=== PATIENT | male | born 1950 | race Caucasian/White ===

== ENCOUNTER → 2016-05-24 | Outpatient (CLI) | payer OTHER, MEDICARE ==
[~2016-05-24] MED LIST: ASPI81TA28 PO; ATOR-22 PO; DOCU-94 PO; MULT-506 PO; OMEP40CA PO; OXYC-57 PO
[2016-05-24 13:11] LABS: BASO % 0.5 %; BASO ABS # 0.06 K/uL (0-0.2); COMPLETE YES; EOS % 1.9 %; IG% 0.2 %; LYMPH % 30.9 %; LYMPH ABS # 4.06 K/uL (1.2-3.4); MEAN CELL VOLUME 93.8 fL (80-100); MEAN CORPUSCULAR HEMOGLOBIN 32.6 pg (25-34); MEAN CORPUSCULAR HGB CONC 34.8 g/dl (32-36); MEAN PLATELET VOLUME 10.3 fL (7.4-10.4); MONO % 6.8 %; NEUT % 59.7 %; PLATELET COUNT 265 K/uL (130-400); RED BLOOD COUNT 4.48 M/uL (4.7-6.1); WHITE BLOOD COUNT 13.15 K/uL (4.8-10.8)
[2016-05-24 13:42] LABS: BLOOD UREA NITROGEN 13 mg/dl (7-18); CALCIUM 8.9 mg/dl (8.5-10.1); CARBON DIOXIDE 25 mmol/L (21-32); CHLORIDE 106 mmol/L (98-107); CREATININE 0.96 mg/dl (0.60-1.40); GLUCOSE 78 mg/dl (70-99); POTASSIUM 3.8 mmol/L (3.5-5.1); SODIUM 141 mmol/L (136-145)
[2016-05-24 13:52] LABS: FERRITIN 45.1 ng/ml (8.0-388.0)
--- NOTE | 2016-05-31 08:49 | CODING QUERY MEDICAL NECESSITY ---
SUPPORTING DIAGNOSIS NEEDED A supporting diagnosis is required for the test/procedure performed on this patient in order for us to be reimbursed by the patient's insurance. Please provide a supporting diagnosis for the following test/procedure listed below next to the test name along with your signature. *If there is no additional diagnosis for this patient that would support the following test/procedure please document that below next to the test/procedure. Test(s)/Procedure(s) that require a supporting diagnosis: * VITAMIN B-12 LEVEL DIAGNOSIS: * DOS: 05/24/16 Provider Signature: Date: Thank you Caitlin Davies Health Information Management Once completed, please kindly fax back to [phone] For questions please call [phone]
--- NOTE | 2016-06-02 09:29 | CODING QUERY MEDICAL NECESSITY ---
CQSUPPORTING DIAGNOSIS NEEDED A supporting diagnosis is required for the test/procedure performed on this patient in order for us to be reimbursed by the patient's insurance. Please provide a supporting diagnosis for the following test/procedure listed below next to the test name along with your signature. *If there is no additional diagnosis for this patient that would support the following test/procedure please document that below next to the test/procedure. Test(s)/Procedure(s) that require a supporting diagnosis: DOS 05/24/16 VITAMINS AND METABOLIC FUNCTION-VITAMIN B12 Provider Signature: Date: Thank you Ericka Alvarado Health Information Management Once completed, please kindly fax back to [phone] For questions please call [phone]
== END | disposition home or self-care (01) ==
LOC: C.LAB 11:18
PROVIDERS: ATTEND Surgery
DX: C34.90 Malignant neoplasm of unspecified part of unspecified bronchus or lung (principal); I73.9 Peripheral vascular disease, unspecified; E78.5 Hyperlipidemia, unspecified; D64.9 Anemia, unspecified; F17.200 Nicotine dependence, unspecified, uncomplicated

== ENCOUNTER 2016-06-08 11:47 | Inpatient (IN) | payer OTHER, MEDICARE ==
[2016-05-24 12:27] LABS: PARTIAL THROMBOPLASTIN RATIO 1.2; PROTHROMBIN TIME (PATIENT) 10.3 SECONDS (9.0-12.0)
--- NOTE | 2016-05-24 12:54 | PAT Medication Instructions ---
Service Date May 24, 2016. Current Home Medication List Aspirin (Aspirin Ec), 81 MG PO QPM Atorvastatin (Lipitor), 20 MG PO QPM Multivitamin (Multivitamin), 1 TAB PO QPM Omeprazole (Prilosec), 40 MG PO QPM Medication Instructions For Your Scheduled Surgery - Take the following medications as scheduled the night before surgery: Aspirin (Aspirin Ec), 81 MG PO QPM (can continue per surgeon) Atorvastatin (Lipitor), 20 MG PO QPM Multivitamin (Multivitamin), 1 TAB PO QPM Omeprazole (Prilosec), 40 MG PO QPM If you have any questions please call us at [phone] or [phone] ( [facility]) or [phone]
[2016-06-07 08:39] VITALS: BMI 22.0
[~2016-06-08] VITALS: Ht 167.6 cm; Wt 63.2 kg
[2016-06-08] VITALS (7 sets, daily range): BP systolic 133–150; BP diastolic 73–81; PULSE 53–83; TEMP 36.3–36.8; O2SAT 93–97; Ht 167.6 cm; Wt 63.2 kg
[~2016-06-08 11:47] MED LIST changes: -DOCU-94 PO; -OXYC-57 PO
[2016-06-08] MEDS ORDERED: FENTANYL CITRATE INJ 50 MCG/1 ML 2 ML VIAL ONE (14:28)
[2016-06-08] MEDS ORDERED: ONDANSETRON INJ 2 MG/ML 2 ML VIAL ONE (14:28)
[2016-06-08] MEDS ORDERED: ROCURONIUM BROMIDE 10 MG/ML 5 ML VIAL ONE ×2 (14:28→16:57)
[2016-06-08] MEDS ORDERED: MIDAZOLAM HCL 1 MG/ML 2ML VIAL ONE (14:28)
[2016-06-08] MEDS ORDERED: LIDOCAINE HCL 2% 2 ML VIAL (20MG/ML) ONE (14:28)
[2016-06-08] MEDS ORDERED: GLYCOPYRROLATE INJ 0.2 MG/ML VIAL ONE (14:28)
[2016-06-08] MEDS ORDERED: PROPOFOL IV EMULSION 10 MG/ML 20 ML VIAL IV ONE (14:28)
[2016-06-08] MEDS ORDERED: DEXAMETHASONE SOD INJ 4 MG/ML VIAL ONE (14:28)
[2016-06-08] MEDS ORDERED: NEOSTIGMINE METHYLSULFATE 5 MG/5 ML SYR ONE (14:28)
--- NOTE | 2016-06-08 14:29 | History & Physical Bridge Note ---
H&P Re-Evaluation Bridge Note: I have examined the patient, reviewed the History & Physical and in the interval since the performance of the History & Physical I have noted the following changes of clinical significance: No changes noted
[2016-06-08] MEDS ORDERED: ATROPINE SULFATE 0.1 MG/ML 5ML SYR IV PRN (14:30)
[2016-06-08] MEDS ORDERED: EpHEDrine SULFATE INJ 50 MG/ML AMP IV PRN (14:30)
[2016-06-08] MEDS ORDERED: ONDANSETRON INJ 2 MG/ML 2 ML VIAL IV PRN ×2 (14:30→18:45)
[2016-06-08] MEDS ORDERED: FENTANYL CITRATE INJ 50 MCG/1 ML 2 ML VIAL IV PRN (14:30)
[2016-06-08] MEDS ORDERED: BUPIVACAINE LIPOSOME 1/3% 266 MG/20 ML VIAL INFIL ONE (14:47)
[2016-06-08] MEDS ORDERED: SODIUM CHLORIDE 0.9% PF 50 ML VIAL ONE (14:51)
[2016-06-08] MEDS ORDERED: CEFAZOLIN SOD 1 GM VIAL ONE (15:47)
[2016-06-08] MEDS ORDERED: EpHEDrine SULFATE 50MG/5ML SYR ONE (15:51)
[2016-06-08] MEDS ORDERED: HYDROmorphone INJ 2 MG/ML SYR/VIAL ONE (15:52)
[2016-06-08] MEDS ORDERED: MoRPHine SULFATE 2 MG/ML CARP IV PRN ×2 (18:45)
[2016-06-08] MEDS ORDERED: OXYCODONE/ACETAMINOPHEN 5-325 TAB PO PRN (18:45)
--- NOTE | 2016-06-08 19:18 | DIAGNOSTIC IMAGING REPORT ---
CHEST ONE VIEW PORTABLE CLINICAL HISTORY: s/p LLL postoperative evaluation COMPARISON STUDY: 06/03/2014 FINDINGS: Postoperative changes left lung base. Left-sided chest tube in good position. No postprocedural pneumothorax. Small mild subcutaneous emphysematous change. IMPRESSION: Unremarkable postprocedural chest. No evidence pneumothorax. Electronically signed by: Tyrel Sweeney M.D. 06/08/2016 7:16 PM Dictated Date/Time: 06/08/2016 7:16 PM
--- NOTE | 2016-06-08 19:25 | Anesthesiology Progress Note ---
Anesthesia Post Op Note Date & Time Jun 08, 2016 at 19:25 Vital Signs Pain Intensity: 0 Vital Signs Past 12 Hours Date Time Temp Pulse Resp B/P Pulse Ox O2 Delivery O2 Flow Rate FiO2 06/08/16 19:15 70 16 132/61 98 Nasal Cannula 2 06/08/16 19:05 62 16 142/57 100 Mask 10 06/08/16 18:55 69 16 154/69 96 Mask 10 06/08/16 18:46 36.6 75 16 161/69 98 Mask 10 06/08/16 12:09 36.3 53 18 150/76 97 Room Air Notes Mental Status: alert / awake / arousable, participated in evaluation Pt Amnestic to Procedure: Yes Nausea / Vomiting: adequately controlled Pain: adequately controlled Airway Patency, RR, SpO2: stable & adequate BP & HR: stable & adequate Hydration State: stable & adequate Anesthetic Complications: no major complications apparent
[2016-06-08] MEDS: D5W AND 1/2NSS 1,000 ML IV SCH (20:35)
[2016-06-08] MEDS: ACETAMINOPHEN IV 1,000 MG in EMPTY BAG 0 ML IV SCH (21:47)
[2016-06-08] MEDS: CEFAZOLIN IV 2,000 MG in DEXTROSE 5% 50ML 50 ML IV SCH (21:47)
[2016-06-08] MEDS: DOCUSATE SODIUM 100 MG CAP PO SCH (21:47)
[2016-06-08] MEDS: ATORVASTATIN 20 MG TAB PO SCH (21:47)
[2016-06-08] MEDS: MULTIVITAMIN TAB PO SCH (21:48)
[2016-06-08] MEDS: PANTOprazole SOD 40 MG TAB PO SCH (21:48)
[2016-06-08] MEDS: ASPIRIN 81 MG ECTAB PO SCH (21:48)
[2016-06-08] MEDS: METOCLOPRAMIDE HCL INJ 5 MG/ML 2 ML VIAL IV. SCH (21:48)
[2016-06-08] MEDS: KETOROLAC TROMETHAMINE 15 MG/ML VIAL IV. SCH (21:49)
[2016-06-09] VITALS (9 sets, daily range): BP systolic 114–146; BP diastolic 68–76; PULSE 56–85; TEMP 36.5–37.1; O2SAT 95–100
--- NOTE | 2016-06-09 01:59 | OPERATIVE REPORT ---
DATE OF OPERATION: 06/08/2016 PREOPERATIVE DIAGNOSIS: Lung nodule, left lower lobe. POSTOPERATIVE DIAGNOSIS: Non-small cell lung carcinoma, left lower lobe. PROCEDURES: 1. Thoracoscopic wedge resection, left lower lobe mass. 2. Thoracoscopic left lower lobectomy and mediastinal lymph node dissection. SURGEON: Dexter Harper MD COMPLIANCE REPRESENTATIVE DEALER: MIGUEL Faustin ANESTHESIA: General anesthesia with endotracheal intubation. INDICATION FOR PROCEDURE AND FINDINGS: Mr. Alonso is a 66-year-old male, who had a history of smoking and was found to have a mass of left lower lobe. It had some hypermetabolic uptake. After a long discussion, we elected to proceed with a wedge resection and lobectomy if necessary. On 06/08/2016, the patient underwent an uncomplicated thoracoscopic wedge resection of this mass. We were easily able to find that he did indeed have a non-small cell lung carcinoma. We then performed an uncomplicated thoracoscopic left lower lobectomy. DESCRIPTION OF PROCEDURE: The patient was brought to the operating room and laid in supine position. General anesthesia was induced and endotracheal intubation was performed with a double lumen tube. The patient was placed in the right lateral decubitus position. Left chest was prepped and draped in usual sterile fashion. A 5 mm port was placed one interspace below the tip of the scapula and upon entering CO2 was infused. We could see that the patient had no adhesions. We then placed the 10 mm port at the fourth interspace and a 10 mm port in the seventh interspace anteriorly. We were then able to grasp this mass. We could see it appeared to be umbricating the pleura. This mass was wedged out and sent to the lab for frozen section. While waiting for this, we took down the inferior pulmonary ligament biopsy of the eighth and ninth level lymph nodes. We took down some of this posteriorly and anteriorly and dissected out the inferior pulmonary vein. The frozen section came back as consistent with a non-small cell lung carcinoma. We then divided the vein with an Endo-NUNO stapler and upon retracting upward we came upon the bronchus from inferiorly. We then the fissure. The fissure was incomplete anteriorly and after dissecting this out we were able to fire an Endo-NUNO stapler and get down to the artery. We then dissected out the posterior aspect of the fissure. I then came upon the arteries leading to the left lower lobe. I fired the Endo-NUNO over on 3 separate arteries. We took care to not injure the artery proximal to the lingular artery. I then dissected out several level 11, level 12 lymph nodes as well as level 10 and level 5 lymph nodes. I really did not see much in the level 6 area. We were then able to come across the bronchus without difficulty and fire Endo-NUNO stapler across this. Endobag was used to remove this. It should be noted that we enlarged the fourth interspace. We then filled the chest up with saline and we did not see any air leak. This was suctioned out, 266 mg was reconstituted and 60 mL of normal saline injected from the second to the eleventh rib. We then placed a 24-[place] Ze[place]ander chest tube through the anterior thoracostomy port and directed it towards the apex. We sutured it in place with heavy silk suture. Muscle layers of all 3 incisions were closed with 0 Vicryl and then 3-0 Monocryl was used in a running continuous fashion which was antibiotic impregnated to close the skin. He tolerated it well, was extubated in the room and had no air leak. Blood loss was negligible. I attest to the content of the Intraoperative Record and any orders documented therein. Any exceptio ns are noted below.
[2016-06-09] MEDS: ACETAMINOPHEN IV 1,000 MG in EMPTY BAG 0 ML IV SCH ×3 (05:27→21:14)
[2016-06-09] MEDS: D5W AND 1/2NSS 1,000 ML IV SCH (05:27)
[2016-06-09] MEDS: CEFAZOLIN IV 2,000 MG in DEXTROSE 5% 50ML 50 ML IV SCH (05:27)
[2016-06-09] MEDS: KETOROLAC TROMETHAMINE 15 MG/ML VIAL IV. SCH ×3 (05:28→21:11)
[2016-06-09] MEDS: METOCLOPRAMIDE HCL INJ 5 MG/ML 2 ML VIAL IV. SCH ×2 (05:28→14:15)
[2016-06-09 07:08] LABS: BASO ABS # 0.01 K/uL (0-0.2); COMPLETE YES; HEMATOCRIT 38.2 % (42-52); IG% 0.5 %; LYMPH % 14.2 %; LYMPH ABS # 3.37 K/uL (1.2-3.4); MEAN CELL VOLUME 94.6 fL (80-100); MEAN CORPUSCULAR HEMOGLOBIN 32.9 pg (25-34); MEAN CORPUSCULAR HGB CONC 34.8 g/dl (32-36); MEAN PLATELET VOLUME 10.2 fL (7.4-10.4); NEUT % 79.3 %; PLATELET COUNT 279 K/uL (130-400); RED BLOOD COUNT 4.04 M/uL (4.7-6.1); WHITE BLOOD COUNT 23.67 K/uL (4.8-10.8)
[2016-06-09 07:36] LABS: BUN/CREATININE RATIO 10.8 (10-20); CREATININE 1.1 mg/dl (0.60-1.40); POTASSIUM 4.4 mmol/L (3.5-5.1)
--- NOTE | 2016-06-09 07:50 | DIAGNOSTIC IMAGING REPORT ---
SINGLE VIEW CHEST CLINICAL HISTORY: Status post left lower lobe resection. FINDINGS: An AP, portable, upright chest radiograph is compared to study dated 06/08/2016 and correlated with chest CT dated 03/25/2016. The examination is degraded by portable technique and patient rotation. The cardiomediastinal silhouette is unremarkable. There is atherosclerotic calcification of the thoracic aorta. Emphysema is noted. A left-sided chest tube is unchanged in position. There are postoperative changes and volume loss consistent with left lower lobe pulmonary resection. There is elevation of left hemidiaphragm. Linear atelectasis versus scarring at the right lung base is similar to previous. Trace pleural effusions are suspected. No pneumothorax is seen. The skeletal structures are osteopenic. The bony thorax is grossly intact. Subcutaneous gas is present along the left chest wall. IMPRESSION: 1. Emphysema and changes from left lower lobe pulmonary resection. 2. A left-sided chest tube is unchanged in position. No pneumothorax is identified. 3. There is no airspace consolidation typical for pneumonia. Trace pleural effusions are suspected. Electronically signed by: Lester Tom M.D. 06/09/2016 7:48 AM Dictated Date/Time: 06/09/2016 7:46 AM
--- NOTE | 2016-06-09 09:16 | SURGERY PROGRESS NOTE ---
DATE: 06/09/2016 DATE: 06/09/2016. Mr. Alonso was seen today. He is sitting up eating breakfast and reading the paper in a chair. He is afebrile with stable vital signs. He is on room air with excellent saturations. His chest tube drained very little serous fluid, but he does have a very tiny air leak. He is moving air well except for a few rhonchi. His x-ray looks quite good except for some atelectasis at the right base actually. ASSESSMENT AND PLAN: Postoperative day #1, status post thoracoscopic left lower lobectomy. We are going to discontinue all IVs and Rayo catheter and have him ambulate in the hallway and hopefully we are going to get his chest tube out and discharge him by the morning. His labs all look quite good.
[2016-06-09] MEDS: DOCUSATE SODIUM 100 MG CAP PO SCH ×2 (09:55→21:08)
[2016-06-09] MEDS: ENOXAPARIN 40 MG/0.4 ML SYR SQ SCH (09:56)
[2016-06-09] MEDS: ATORVASTATIN 20 MG TAB PO SCH (21:08)
[2016-06-09] MEDS: ASPIRIN 81 MG ECTAB PO SCH (21:08)
[2016-06-09] MEDS: PANTOprazole SOD 40 MG TAB PO SCH (21:08)
[2016-06-09] MEDS: MULTIVITAMIN TAB PO SCH (21:08)
[2016-06-10 03:32] VITALS: BP 163/67; PULSE 74; TEMP 36.5; O2SAT 96
[2016-06-10] MEDS: KETOROLAC TROMETHAMINE 15 MG/ML VIAL IV. SCH ×2 (05:37→13:40)
[2016-06-10] MEDS: ACETAMINOPHEN IV 1,000 MG in EMPTY BAG 0 ML IV SCH ×2 (05:37→13:40)
[2016-06-10 07:57] VITALS: BP 124/70; PULSE 65; TEMP 36.4; O2SAT 96
[2016-06-10] MEDS: DOCUSATE SODIUM 100 MG CAP PO SCH (09:38)
[2016-06-10] MEDS: ENOXAPARIN 40 MG/0.4 ML SYR SQ SCH (09:40)
[2016-06-10 12:03] VITALS: O2SAT 96
--- NOTE | 2016-06-10 12:24 | SURGERY PROGRESS NOTE ---
DATE: 06/10/2016 DATE: 06/10/2016. Mr. Alonso was seen today 2 days after his thoracoscopic left lower lobectomy. His pathology is still pending. The patient is on room air. He is ambulating. He is tolerating a diet. He looks great. He really does not have an air leak today; however, his drainage is a bit much for me to pull this tube. He drained over 500 mL of serous fluid yesterday. He has only drained 80 mL today and I will pull the tube afternoon if his drainage remains low, or wait until tomorrow if the drainage decreases. He and his understand. PAT
[2016-06-10 12:38] VITALS: BP 138/68; PULSE 76; TEMP 36.7; O2SAT 97
[2016-06-10] MEDS ORDERED: OXYC-57 PO (14:45)
[2016-06-10] MEDS ORDERED: DOCU-94 PO (14:45)
--- NOTE | 2016-06-10 14:48 | Discharge Instructions ---
Discharge Instructions Admission Reason for Admission: R91.1 Left Lung Nodule Discharge Discharge Diagnosis / Problem: Left Lung Nodule Discharge Goals Goal(s): Learn about illness Activity Recommendations Activity Limitations: as noted below Lifting Limitations: none 1. Do not drive if taking percocet. 2. Do not fly or SCUBA dive until cleared to do so by Dr. Harper. 3. Keep dressing on for 3 days, then you may remove it and shower. No tub baths. . Instructions / Follow-Up Instructions / Follow-Up 1. Office appointment with Dr. Harper in 1-2 weeks. Office will call you with date and time of appointment. You will need a chest x-ray prior to appointment. Current Hospital Diet Patient's current hospital diet: Regular Diet Discharge Diet Recommended Diet: Regular Diet Procedures Procedures Performed: Left Video assisted thorocascopy, with left lower wedge resection and left lower lobectomy and mediastinal lymphadenectomy Pending Studies Studies pending at discharge: no Medical Emergencies . Who to Call and When: Medical Emergencies: If at any time you feel your situation is an emergency, please call 911 immediately. . Non-Emergent Contact Non-Emergency issues call your: Surgeon Call Non-Emergent contact if: you have a fever, your pain is not controlled, wound has increased drainage . "Provider Documentation" section prepared by Jeramy Dee. VTE Core Measure Inpt VTE Proph given/why not?: Enoxaparin (Lovenox)SQ
--- NOTE | 2016-06-10 15:13 | DIAGNOSTIC IMAGING REPORT ---
CHEST ONE VIEW PORTABLE HISTORY: Left chest tube removal. COMPARISON: Chest 06/09/2016. FINDINGS: Left-sided chest tube has been removed. No pneumothorax identified. Trace right pleural effusion and right basilar densities persist. There are few linear density at the left lung base, unchanged. This favors subsegmental atelectasis. The heart is normal in size. The upper lungs and remain clear. IMPRESSION: Interval removal of the left-sided chest tube. No definite pneumothorax. Electronically signed by: Lucas Stiles M.D. 06/10/2016 3:12 PM Dictated Date/Time: 06/10/2016 3:10 PM
[2016-06-10 15:23] VITALS: BP 138/68; PULSE 76; TEMP 36.7; O2SAT 97
--- NOTE | 2016-06-10 23:14 | DISCHARGE SUMMARY ---
DISCHARGE DIAGNOSIS: Nonsmall cell lung carcinoma left lower lobe. HOSPITAL COURSE: Desean Alonso is a very nice 66-year-old male who was found to have a hypermetabolic mass in his left lower lobe. On 06/08/2016, took the patient to the operating room and wedged this mass out. It turns out this was a nonsmall cell lung carcinoma. I did an uncomplicated thoracoscopic left lower lobectomy with lymph node dissection. He had a very tiny air leak after surgery. We watched him overnight and he really did not have an air leak the following day, but he drained about 500 mL of fluid. The following day he really did not have an air leak. I watched him over the course of the day on 06/10/2016, and as his drainage did not increase, I went ahead and removed his chest tube. His chest x-ray looked quite good afterward. Discharged him home. We will have the final pathology back when I see him in the office next week. Discharge instructions were given.
== END 2016-06-10 15:40 | disposition home or self-care (01) | DRG 165 ==
LOC: ENRESERVDT → ENRESERVTM → C.ACU 11:47 → C.MSW 18:36
PROVIDERS: ADMIT Surgery; ATTEND Surgery
PROC: 0BTJ4ZZ Resection of Left Lower Lung Lobe, Percutaneous Endoscopic Approach (ICD-10-PCS; principal; 2016-06-08 13:30)
PROC: 07B74ZX Excision of Thorax Lymphatic, Percutaneous Endoscopic Approach, Diagnostic (ICD-10-PCS; principal; 2016-06-08 13:30)
PROC: 0BBJ4ZX Excision of Left Lower Lung Lobe, Percutaneous Endoscopic Approach, Diagnostic (ICD-10-PCS; principal; 2016-06-08 13:30)
DX: C34.32 Malignant neoplasm of lower lobe, left bronchus or lung (principal); J44.9 Chronic obstructive pulmonary disease, unspecified; F17.210 Nicotine dependence, cigarettes, uncomplicated; E78.5 Hyperlipidemia, unspecified; K21.9 Gastro-esophageal reflux disease without esophagitis; I73.9 Peripheral vascular disease, unspecified; Z77.090 Contact with and (suspected) exposure to asbestos; Z77.123 Contact with and (suspected) exposure to radon and other naturally occurring radiation; Z98.62 Peripheral vascular angioplasty status; Z87.01 Personal history of pneumonia (recurrent); Z79.82 Long term (current) use of aspirin; Z82.49 Family history of ischemic heart disease and other diseases of the circulatory system; Z82.0 Family history of epilepsy and other diseases of the nervous system; Z82.3 Family history of stroke; Z83.3 Family history of diabetes mellitus

== ENCOUNTER → 2016-06-20 | Outpatient (CLI) | payer OTHER, MEDICARE ==
[~2016-06-20] MED LIST changes: +DOCU-94 PO; +OXYC-57 PO
--- NOTE | 2016-06-20 09:36 | DIAGNOSTIC IMAGING REPORT ---
CHEST 2 VIEWS ROUTINE CLINICAL HISTORY: R91.1 Solitary pulmonary [id number] RECENT LUNG SURGERY COMPARISON STUDY: 06/10/2016 FINDINGS: The cardiac and mediastinal contours remain stable. There is left-sided subcutaneous emphysema. There is mild left basal pleural thickening. There are linear atelectatic changes at left lung base. There is suggestion of mild left lung volume loss. No pneumothorax is visualized.[ IMPRESSION: 1. No evidence of lobar consolidation 2. Subcutaneous emphysema on the left 3. Minor left-sided pleural thickening/fluid. Left basilar atelectasis. Electronically signed by: Arsenio Groves M.D. 06/20/2016 9:35 AM Dictated Date/Time: 06/20/2016 9:33 AM
== END | disposition home or self-care (01) ==
LOC: C.RAD1850 09:18
PROVIDERS: ATTEND Surgery
DX: R91.1 Solitary pulmonary nodule (principal)

== ENCOUNTER → 2016-06-27 | Outpatient (CLI) | payer OTHER, MEDICARE ==
--- NOTE | 2016-06-27 11:09 | DIAGNOSTIC IMAGING REPORT ---
CHEST 2 VIEWS ROUTINE HISTORY: Solitary pulmonary nodule. Postop. COMPARISON: Chest 06/20/2016. FINDINGS: Left chest wall subcutaneous emphysema has improved. No pneumothorax. Small partially loculated left basilar pleural effusion has also slightly improved. The heart is stable in size. Bibasilar linear densities consistent with subsegmental atelectasis. This is also improved. IMPRESSION: 1. No pneumothorax. 2. Improvement in the bibasilar subsegmental atelectasis and small left pleural effusion. Electronically signed by: Lucas Stiles M.D. 06/27/2016 11:07 AM Dictated Date/Time: 06/27/2016 11:05 AM
== END | disposition home or self-care (01) ==
LOC: C.RAD1850 10:33
PROVIDERS: ATTEND Surgery
DX: R91.1 Solitary pulmonary nodule (principal)

== ENCOUNTER → 2016-07-15 | Outpatient (CLI) | payer OTHER, MEDICARE ==
[2016-07-15 13:47] LABS: URINE APPEARANCE TURBID (CLEAR); URINE BILIRUBIN NEG (NEG); URINE COLOR DK YELLOW; URINE EPITHELIAL CELL AUTO 0-5 /lpf (0-5); URINE NITRITE POS (NEG); URINE SPECIFIC GRAVITY 1.022 (1.000-1.030); UROBILINOGEN NEG (NEG)
[2016-07-15 14:00] LABS: MANUAL MICROSCOPIC REQUIRED? NO; REVIEW REQ? YES
== END | disposition home or self-care (01) ==
LOC: C.LABBC 18:00
PROVIDERS: ATTEND Internal Medicine
DX: N45.1 Epididymitis (principal)

== ENCOUNTER → 2016-10-31 | Outpatient (CLI) | payer OTHER, MEDICARE ==
--- NOTE | 2016-10-31 10:52 | DIAGNOSTIC IMAGING REPORT ---
(CHEST) THORAX WITHOUT HISTORY:66 [id number] Adenocarcinoma of the lung. Six-month follow-up study. COMPARISON: Chest radiograph 06/27/2016, PET CT 03/30/2016, chest CT 03/25/2016, CT abdomen and pelvis 07/13/2011. TECHNIQUE: Multiple axial CT images of the chest were obtained without the use of IV contrast. FINDINGS: Thyroid is homogeneous. No pathologic adenopathy of the chest is identified, however evaluation is limited without the use of IV contrast. Heart is normal in size without pericardial effusion. Coronary arterial calcifications are present. There is moderate atherosclerosis of the aorta. Minimal upper lobe predominant emphysematous changes are present. There is no pneumothorax or pleural effusion. Patient is status post left lower lobectomy. Postsurgical pleural-parenchymal scarring is noted at the level of the left lung base. There is compensatory hyperinflation of the left upper lobe. The right lung is clear. Central airways are patent. There is unchanged low attenuating lesion of the right adrenal gland, 7 x 8 mm which is stable dating back to CT study dated 07/13/2011 compatible with adrenal adenoma. Remaining imaged upper abdominal structures are within normal limits. The soft tissues are unremarkable. No suspicious lytic or blastic bony lesions are seen. Multilevel Schmorl's nodes involve the spine. IMPRESSION: 1. Status post left lower lobectomy. No evidence of metastatic disease or adenopathy of the chest. 2. 7 x 8 mm adenoma of the right adrenal gland, unchanged from 07/13/2011. The above report was generated using voice recognition software. It may contain grammatical, syntax or spelling errors. Electronically signed by: Modesto Peterson 10/31/2016 10:51 AM Dictated Date/Time: 10/31/2016 10:43 AM
== END | disposition home or self-care (01) ==
LOC: C.CTS 09:31
PROVIDERS: ATTEND Surgery
DX: C34.90 Malignant neoplasm of unspecified part of unspecified bronchus or lung (principal)

== ENCOUNTER → 2017-05-05 | Outpatient (CLI) | payer OTHER, MEDICARE ==
[~2017-05-05] MED LIST changes: -OXYC-57 PO
--- NOTE | 2017-05-05 09:07 | DIAGNOSTIC IMAGING REPORT ---
CT OF THE CHEST WITHOUT IV CONTRAST CLINICAL HISTORY: Lung adenocarcinoma status post left lower lobectomy. COMPARISON STUDY: Chest CT October 31, 2016. CT DOSE: 236.25 mGy.cm TECHNIQUE: Axial images of the chest were obtained without IV contrast. Images were reviewed in the axial, sagittal, and coronal planes. IV contrast was not administered for this examination. A dose lowering technique was utilized adhering to the principles of ALARA. FINDINGS: No enlarged axillary, mediastinal or hilar lymph nodes are present. The size of the heart is normal. There is no pericardial effusion. Central airways are patent. The patient is status post left lower lobectomy. There is no pneumothorax or pleural effusion. Mild emphysema is noted. There is no consolidation to suggest pneumonia. The postoperative appearance is unchanged since exam of October 31, 2016. Central airways are patent. No suspicious osseous lesions within the bony thorax are noted. Multiple hypodense hepatic lesions are unchanged from earlier exams and reflect hepatic cysts. IMPRESSION: No evidence for recurrent malignancy status post left lower lobectomy. Electronically signed by: Sherif Scott M.D. 05/05/2017 9:06 AM Dictated Date/Time: 05/05/2017 8:52 AM
== END | disposition home or self-care (01) ==
LOC: C.CTS 08:39
PROVIDERS: ATTEND Surgery
DX: Z85.118 Personal history of other malignant neoplasm of bronchus and lung (principal)

== ENCOUNTER → 2017-07-20 | Day surgery (SDC) | payer OTHER, MEDICARE ==
[2017-07-06 08:47] VITALS: Ht 167.6 cm; Wt 63.6 kg
[~2017-07-20] VITALS: Ht 167.6 cm; Wt 63.6 kg
[~2017-07-20] MED LIST changes: -DOCU-94 PO; +LIDOCAINE HCL 2% 2 ML VIAL (20MG/ML) ONE; -OMEP40CA PO; +OMEP40CA41 PO; +PROPOFOL IV EMULSION 10 MG/ML 20 ML VIAL IV ONE; +SODIUM CHLORIDE 0.9% 500ML 500 ML IV ONE
[2017-07-20 14:11] VITALS: TEMP 36.4
--- NOTE | 2017-07-20 14:36 | Endo History and Physical ---
History & Physical Date of Service: Jul 20, 2017. 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 Past Surgical History Hx Cardiac Surgery: No Hx Internal Defibrillator: No Hx Pacemaker: No Hx Abdominal Surgery: No Hx of Implantable Prosthesis: No Hx Post-Op Nausea and Vomiting: No Hx Cancer Surgery: Yes (LEFT LOWER LUNG LOBECTOMY) Hx Thoracic Surgery: No Hx Orthopedic: No Hx Urinary Tract Surgery: No Family History None Social History Smoking Status: Current Every Day Smoker Hx Substance Use: No Hx Alcohol Use: Yes (VERY SELDOM) Allergies Coded Allergies: No Known Allergies (Unverified , 07/20/17) Current Medications Reported Home Medications Medications Dose Route/Sig Max Daily Dose Days Date Category Prilosec (Omeprazole) 40 Mg Cap 40 Mg PO QPM 07/06/17 Reported Lipitor (Atorvastatin Calcium) 20 Mg Tab 20 Mg PO QPM 07/31/13 Reported Aspirin Ec (Aspirin) 81 Mg Tab 81 Mg PO QPM 01/31/13 Reported Multivitamin (Multivitamins) Tab 1 Tab PO QPM 07/13/11 Reported Vital Signs Weight (Kilograms): 63.64 Height (Feet): 5 Height (Inches): 6 Date Time Temp Pulse Resp B/P (MAP) Pulse Ox O2 Delivery O2 Flow Rate FiO2 07/20/17 14:11 36.4 58 18 162/86 (111) 98 Room Air Physical Exam General Appearance: WD/WN, no apparent distress Respiratory/Chest: Auscultation: breath sounds normal Cardiovascular: Heart Auscultation: RRR Abdomen: Bowel Sounds: normal Inspection & Palpation: soft, non-distended, no tenderness, guarding & rebound Assessment and Plan Assessment: 67 yo CM who presents for 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 Plan: Proceed with EGD.
--- NOTE | 2017-07-20 14:51 | Discharge Instructions ---
Endoscopy Patient Instructions Date / Procedure(s) Performed Jul 20, 2017. EGD Allergy Information Coded Allergies: No Known Allergies (Unverified , 07/20/17) Discharge Date / Findings Jul 20, 2017. Stafford's Esophagus Hiatal hernia Medication Instructions Stopped Medication(s): ASPIRIN 81MG 07/19/17 OK to resume all medications today as prescribed Reported Home Medications Medications Dose Route/Sig Max Daily Dose Days Date Category Prilosec (Omeprazole) 40 Mg Cap 40 Mg PO QPM 07/06/17 Reported Lipitor (Atorvastatin Calcium) 20 Mg Tab 20 Mg PO QPM 07/31/13 Reported Aspirin Ec (Aspirin) 81 Mg Tab 81 Mg PO QPM 01/31/13 Reported Multivitamin (Multivitamins) Tab 1 Tab PO QPM 07/13/11 Reported Provider Instructions Activity Restrictions - No exercising or heavy lifting for 24 hours. - Do not drink alcohol the day of the procedure. - Do not drive a car or operate machinery until the day after the procedure. - Do not make any important decisions or sign important papers in 24 hours after the procedure. Following Day: - Return to full activity which may include returning to work/school. Diet Start your diet with liquids and light foods (jello, soup, juice, toast). Then eat your usual diet if not nauseated. Treatment For Common After Affects For mild abdominal pain, bloating, or excessive gas: - Rest - Eat lightly - Lie on right side Follow-Up Information Follow-up with DR Lolis YADAV as scheduled Anesthesia Information What You Should Know You have had a procedure that required some medicine to reduce anxiety and discomfort. This treatment is called moderate sedation. After receiving the treatment, you may be sleepy, but you will be able to breathe on your own. The effects of the treatment may last for several hours. Follow these instructions along with Activity/Diet recommendations noted above: * Do NOT do anything where dizziness or clumsiness would be dangerous. * Rest quietly at home today, then you can be up and about tomorrow. * Have a responsible person stay with you the rest of today. * You may have had an I.V. today. If so, you may take the dressing off later today. Recommendations Call your doctor if: * Trouble breathing * Continuous vomiting for more than 24 hours * Temperature above 101 degrees * Severe abdominal pain or bloating * Pain not relieved by pain medicine ordered * There is increased drainage or redness from any incision * A large amount of rectal bleeding greater than 2-3 tablespoons. (If you had a polyp/s removed or have hemorrhoids, a small amount of blood - from the rectum is to be expected.) * You have any unanswered questions or concerns. IN THE EVENT OF A SERIOUS EMERGENCY, GO TO THE NEAREST EMERGENCY ROOM Your discharge instructions were prepared by provider Mark Anthony Pinto. Patient Instructions Signature Page Desean Alonso Patient (or Guardian) Signature/Date: I have read and understand the instructions given to me by my caregivers. Caregiver/RN/Doctor Signature/Date: The above-named patient and/or guardian has received patient instructions on this date. + Original Patient Signature Page (only) stays with chart. Please make copy for patient.
--- NOTE | 2017-07-20 15:19 | GI REPORT ---
Procedure Date: 07/20/2017 2:10 PM Procedure: Upper GI endoscopy Indications: Follow-up of Stafford's esophagus Medicines: Monitored Anesthesia Care Complications: No immediate complications. Estimated Blood Loss: Estimated blood loss: none. Procedure: Pre-Anesthesia Assessment: - Prior to the procedure, a History and Physical was performed, and patient medications and allergies were reviewed. The patient's tolerance of previous anesthesia was also reviewed. The risks and benefits of the procedure and the sedation options and risks were discussed with the patient. All questions were answered, and informed consent was obtained. Prior Anticoagulants: The patient has taken aspirin, last dose was 1 day prior to procedure. ASA Grade Assessment: III - A patient with severe systemic disease. After reviewing the risks and benefits, the patient was deemed in satisfactory condition to undergo the procedure. After obtaining informed consent, the endoscope was passed under direct vision. Throughout the procedure, the patient's blood pressure, pulse, and oxygen saturations were monitored continuously. The scope was introduced through the mouth, and advanced to the second part of duodenum. The upper GI endoscopy was accomplished without difficulty. The patient tolerated the procedure well. 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 The maximum longitudinal extent of these mucosal changes was 1 cm in length. Biopsies were taken with a cold forceps for histology. A small hiatal hernia was present. The examined duodenum was normal. 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 Biopsied. - Small hiatal hernia. - Normal examined duodenum. Recommendation: - Resume previous diet. - Continue present medications. - Await pathology results. - Return to primary care physician as previously scheduled. Mark Anthony Pinto, DO 07/20/2017 3:18:57 PM This report has been signed electronically. Note Initiated On: 07/20/2017 2:10 PM I attest to the content of the Intraoperative Record and orders documented therein, exceptions below
[2017-07-20 15:41] VITALS: BP 153/79; PULSE 50; O2SAT 100
--- NOTE | 2017-07-20 15:50 | Anesthesiology Progress Note ---
Anesthesia Post Op Note Date & Time Jul 20, 2017 at 15:49 Vital Signs Pain Intensity: 0 Vital Signs Past 12 Hours Date Time Temp Pulse Resp B/P (MAP) Pulse Ox O2 Delivery O2 Flow Rate FiO2 07/20/17 15:41 50 18 153/79 (103) 100 Room Air 07/20/17 15:26 60 18 137/79 (98) 100 Room Air 07/20/17 15:12 54 18 112/59 (76) 99 Room Air 07/20/17 14:11 36.4 58 18 162/86 (111) 98 Room Air Notes Mental Status: alert / awake / arousable, participated in evaluation Pt Amnestic to Procedure: Yes Nausea / Vomiting: adequately controlled Pain: adequately controlled Airway Patency, RR, SpO2: stable & adequate BP & HR: stable & adequate Hydration State: stable & adequate Anesthetic Complications: no major complications apparent
== END | disposition home or self-care (01) ==
LOC: C.GI 13:55
PROVIDERS: ATTEND Internal Medicine
DX: K22.70 Barrett's esophagus without dysplasia (principal); K44.9 Diaphragmatic hernia without obstruction or gangrene; Z90.2 Acquired absence of lung [part of]; J44.9 Chronic obstructive pulmonary disease, unspecified; I73.9 Peripheral vascular disease, unspecified; E78.5 Hyperlipidemia, unspecified; F17.200 Nicotine dependence, unspecified, uncomplicated; K21.9 Gastro-esophageal reflux disease without esophagitis; Z85.118 Personal history of other malignant neoplasm of bronchus and lung; Z79.82 Long term (current) use of aspirin

== ENCOUNTER → 2017-08-24 | Outpatient (CLI) | payer OTHER, MEDICARE ==
[~2017-08-24] MED LIST changes: -LIDOCAINE HCL 2% 2 ML VIAL (20MG/ML) ONE; -PROPOFOL IV EMULSION 10 MG/ML 20 ML VIAL IV ONE; -SODIUM CHLORIDE 0.9% 500ML 500 ML IV ONE
--- NOTE | 2017-08-24 10:17 | DIAGNOSTIC IMAGING REPORT ---
ABDOMEN FOR HERNIA HISTORY: 67 years-old Male K40.90 Right inguinal [id number] acute right inguinal pain with history of prior right inguinal hernia repair. COMPARISON: PET CT 03/30/2016 TECHNIQUE: Multiple real-time sonographic images of the right inguinal tissues were obtained assessing grayscale appearance FINDINGS/IMPRESSION: Small reducible fat filled right inguinal hernia is noted. No bowel is seen associated with the hernia. The above report was generated using voice recognition software. It may contain grammatical, syntax or spelling errors. Electronically signed by: Modesto Peterson M.D. 08/24/2017 10:16 AM Dictated Date/Time: 08/24/2017 10:12 AM
[2017-08-24 13:19] LABS: BASO % 0.4 %; BASO ABS # 0.04 K/uL (0-0.2); EOS % 2.2 %; EOS ABS # 0.25 K/uL (0-0.5); HEMATOCRIT 39.5 % (42-52); HEMOGLOBIN 13.8 g/dL (14.0-18.0); IG# 0.03 K/uL (0.00-0.02); LYMPH % 36.3 %; LYMPH ABS # 4.04 K/uL (1.2-3.4); MEAN CORPUSCULAR HEMOGLOBIN 32.9 pg (25-34); MEAN CORPUSCULAR HGB CONC 34.9 g/dl (32-36); MEAN PLATELET VOLUME 10.4 fL (7.4-10.4); MONO % 6.3 %; NEUT % 54.5 %; NEUT ABS # 6.08 K/uL (1.4-6.5); PLATELET COUNT 254 K/uL (130-400); RED CELL DISTRIBUTION WIDTH CV 13.3 % (11.5-14.5); RED CELL DISTRIBUTION WIDTH SD 45.7 fL (36.4-46.3); WHITE BLOOD COUNT 11.14 K/uL (4.8-10.8)
[2017-08-24 14:03] LABS: ALBUMIN 3.8 gm/dl (3.4-5.0); ALT/SGPT 21 U/L (12-78); AST/SGOT 17 U/L (15-37); BLOOD UREA NITROGEN 14 mg/dl (7-18); CALCIUM 8.8 mg/dl (8.5-10.1); CARBON DIOXIDE 27 mmol/L (21-32); CREATININE 1.09 mg/dl (0.60-1.40); GLUCOSE 90 mg/dl (70-99); POTASSIUM 4.5 mmol/L (3.5-5.1); SODIUM 141 mmol/L (136-145)
[2017-08-24 14:08] LABS: ALKALINE PHOSPHATASE 90 U/L (45-117); CHOLESTEROL 141 mg/dl (0-200); LDL CHOLESTEROL CALCULATED 77 mg/dl
== END | disposition home or self-care (01) ==
LOC: C.ULTRBC 09:43
PROVIDERS: ATTEND Internal Medicine Geriatric Medicine
DX: K40.90 Unilateral inguinal hernia, without obstruction or gangrene, not specified as recurrent (principal); E78.5 Hyperlipidemia, unspecified; K22.70 Barrett's esophagus without dysplasia; D64.9 Anemia, unspecified; J44.9 Chronic obstructive pulmonary disease, unspecified; F17.200 Nicotine dependence, unspecified, uncomplicated; C34.90 Malignant neoplasm of unspecified part of unspecified bronchus or lung; I70.0 Atherosclerosis of aorta

== ENCOUNTER → 2017-09-04 | Outpatient (CLI) | payer OTHER, MEDICARE ==
[~2017-09-04] MED LIST changes: +OPTIRAY 320 IV PRN
--- NOTE | 2017-09-04 07:40 | DIAGNOSTIC IMAGING REPORT ---
CHEST 2 VIEWS ROUTINE CLINICAL HISTORY: C34.90 Adenocarcinoma, lungK40.91 Recurrent inguinal hernia , preoperative chest COMPARISON STUDY: 06/27/2016 FINDINGS: The cardiac and mediastinal contours are normal. There is no evidence of focal pulmonary consolidation. There is no evidence of failure. No pleural effusions are visualized.[ Subsegmental atelectatic changes are present the right lung base. Postsurgical changes are present on the left. IMPRESSION: No active disease in the chest. Electronically signed by: Arsenio Groves M.D. 09/04/2017 7:39 AM Dictated Date/Time: 09/04/2017 7:37 AM
--- NOTE | 2017-09-04 08:26 | DIAGNOSTIC IMAGING REPORT ---
CT ABD/PELVIS IV AND ORAL CONT CLINICAL HISTORY: K40.91 Recurrent inguinal hernia of right side without obstruction LOWER QUADRANT PAIN COMPARISON STUDY: 07/13/2011, inguinal ultrasound dated 08/24/2017 TECHNIQUE: Following the IV administration of 93 mL of Optiray-320, CT scan of the abdomen and pelvis was performed from the lung bases to the proximal femurs. Images are reviewed in the axial, sagittal, and coronal planes. IV contrast was administered without complication. A dose lowering technique was utilized adhering to the principles of ALARA. CT DOSE: 300.69 mGy.cm FINDINGS: Lower chest: There is mild dependent interstitial thickening. There is a small hiatal hernia. Liver: There are scattered subcentimeter hepatic hypodensities, similar to the prior 2011 study. These likely represent cysts. Gallbladder: Unremarkable. Spleen: Normal in size and attenuation. Pancreas: Unremarkable. Adrenal glands: Unremarkable. Kidneys: There are multiple bilateral renal hypodensities. The largest lesion is an 18 mm right renal hypodensity. This exceeds water attenuation and is indeterminate. It appears to contain an internal matrix. A dedicated renal CT scan or renal MRI is recommended in follow-up as this may represent a renal neoplasm. Bowel: There are no transition zone to indicate bowel obstruction. The appendix appears normal. There is no evidence of acute diverticulitis. There are postsurgical changes of a prior right inguinal hernia repair. There is an equivocal tiny residual/recurrent inguinal hernia. Peritoneum: There is no intraperitoneal free air or abdominal ascites. Vasculature: There is a right iliac stent present. There is mild ectasia of the infrarenal abdominal aorta. No aneurysm is visualized. Adenopathy: None. Pelvic viscera: There is mild prostamegaly Skeletal structures: No destructive osseous lesions are seen. IMPRESSION: 1. Indeterminate 18 mm right renal hypodense lesion. A dedicated renal CT or MRI study is recommended in follow-up 2. Postsurgical changes of a prior right inguinal hernia repair. Equivocal tiny residual/recurrent inguinal hernia 3. No evidence of bowel obstruction. No evidence of free air. Normal appendix. No evidence of diverticulitis. Electronically signed by: Arsenio Groves M.D. 09/04/2017 8:25 AM Dictated Date/Time: 09/04/2017 8:13 AM
== END | disposition home or self-care (01) ==
LOC: C.CTS 07:09
PROVIDERS: ATTEND Surgery
DX: C34.90 Malignant neoplasm of unspecified part of unspecified bronchus or lung (principal); Z01.818 Encounter for other preprocedural examination; K40.91 Unilateral inguinal hernia, without obstruction or gangrene, recurrent

== ENCOUNTER → 2017-09-12 | Outpatient (CLI) | payer OTHER, MEDICARE ==
[~2017-09-12] MED LIST changes: +AMLO2.5T PO; +FLM4 PO
--- NOTE | 2017-09-12 16:23 | DIAGNOSTIC IMAGING REPORT ---
KIDNEY (ABDOMEN) COMBO CLINICAL HISTORY: 67 years-old Male presenting with RENAL MASS, *RENAL MASS PROTOCOL* CREATININE 1.09 08/24/17. TECHNIQUE: Multidetector CT of the abdomen was performed before and after the administration of intravenous contrast. IV contrast: 93 mL of Optiray 320. A dose lowering technique was used consistent with the principles of ALARA (as low as reasonably achievable). COMPARISON: 09/04/2017. CT DOSE (mGy.cm): The estimated cumulative dose is 701.70 mGycm. FINDINGS: Social Service Worker topogram: Unremarkable. Lung bases: Emphysematous changes may be present though evaluation of lung bases limited due to respiratory motion. Few linear opacities may represent atelectasis or scarring. Normal heart size. No pericardial or pleural effusion. Liver: Normal morphology. Scattered subcentimeter hypodensities in both lobes of the liver, indeterminate though likely hepatic cysts or hamartomas. Patent hepatic vasculature. Biliary: Mild biliary ductal wall thickening suggested (series 5 image 98). No intrahepatic biliary ductal dilatation. Extrahepatic bile duct top normal in size. Normal gallbladder. Pancreas: Mild parenchymal atrophy. Spleen: Normal. Adrenal glands: Normal. Kidneys and ureters: The 1.8 cm right renal lesion in the anterior aspect of the interpolar region demonstrates enhancement (precontrast 19 HU; early postcontrast 65 HU; delayed postcontrast 56 HU). This mass does not extend into the perinephric fat or vasculature. Multiple well-defined hypodensities in both kidneys, which are subcentimeter and likely cysts though many too small to characterize. Minimal nonspecific air in effort fat stranding bilaterally. No nephrolithiasis no hydronephrosis. Delayed postcontrast imaging demonstrates no filling defect within the urinary collecting systems to the level of the mid ureters. No urothelial thickening. Bowel: Trace hiatal hernia may be present. No bowel obstruction. Peritoneal cavity: No free fluid or intraperitoneal gas. Lymph nodes: No enlarged lymph nodes in the abdomen. Vasculature: Atherosclerosis of the normal caliber abdominal aorta. Significant atherosclerosis of the superior mesenteric artery, which remains patent there is partially visualized right common iliac artery stent. IVC patent. Abdominal wall: Normal. Musculoskeletal: Degenerative changes of the spine. No destructive osseous lesion. IMPRESSION: 1. 1.8 cm enhancing right renal lesion is most worrisome for renal cell carcinoma. No evidence of local or vascular invasion. No lymphadenopathy. No evidence of metastatic disease in abdomen. Electronically signed by: Pierce Moreno M.D. 09/12/2017 4:21 PM Dictated Date/Time: 09/12/2017 4:11 PM
== END | disposition home or self-care (01) ==
LOC: C.CTS 15:31
PROVIDERS: ATTEND Surgery
DX: N28.89 Other specified disorders of kidney and ureter (principal)

== ENCOUNTER 2021-02-04 11:08 | Inpatient (IN) ==
[2021-02-04] MEDS ORDERED: DEXAMETHASONE SOD INJ 4 MG/ML VIAL IV STA (11:25)
[2021-02-04 11:57] LABS: Hematocrit (blood only) 35.8 % (42-52); Hemoglobin 12.9 g/dL (14.0-18.0); Mean Corpuscular Hemoglobin 32.4 pg (25-34); Mean Corpuscular Volume 89.9 fL (80-100); Mean Platelet Volume 10.1 fL (7.4-10.4); Platelet Count 241 K/uL (130-400); RDW Coefficient of Variation 13.2 % (11.5-14.5); RDW Standard Deviation 43.6 fL (36.4-46.3); Red Blood Count 3.98 M/uL (4.7-6.1); White Blood Count 7.98 K/uL (4.8-10.8)
[2021-02-04 12:10] LABS: Partial Thromboplastin Ratio 1.1; Partial Thromboplastin Time 29.9 Seconds (21.0-31.0); Prothrombin Time 9.9 Seconds (9.0-12.0)
[2021-02-04 12:15] LABS: Albumin Level 2.4 gm/dl (3.4-5.0); BUN Creatinine Ratio 9.9 (10-20); Calcium 7.7 mg/dl (8.5-10.1); Est GFR (African American) 61.3 ml/min; Est GFR (Non-African American) 52.9 ml/min; Potassium 4.2 mmol/L (3.5-5.1)
[2021-02-04 12:18] LABS: Albumin Globulin Ratio 0.6 (0.9-2); Bilirubin,Total 0.7 mg/dl (0.2-1); Globulin 3.7 gm/dl (2.5-4.0); Total Protein 6.1 gm/dl (6.4-8.2)
[2021-02-04 12:29] LABS: Basophils # (auto) 0.02 K/uL (0-0.2); Basophils % (auto) 0.3 %; Immature Granulocytes # (auto) 0.03 K/uL (0.00-0.02); Immature Granulocytes % (auto) 0.4 %; Lymphocytes # (auto) 0.76 K/uL (1.2-3.4); Lymphocytes % (auto) 9.5 %; Monocytes # (auto) 0.28 K/uL (0.11-0.59); Monocytes % (auto) 3.5 %; Neutrophils # (auto) 6.89 K/uL (1.4-6.5); Neutrophils % (auto) 86.3 %
[2021-02-04 12:34] LABS: Influenza A virus by PCR Negative (Negative); Influenza B virus by PCR Negative (Negative)
[2021-02-04 12:36] LABS: Base Excess ABG -1.6 mEq/L (-9-1.8); HCO3 ABG 20 mmol/L (19-24); PCO2 ABG 27 mmHg (35-46); PO2 ABG 59 mmHg (80-95)
[2021-02-04 12:41] LABS: Allen Test Pos (Pos)
--- NOTE | 2021-02-04 12:58 | XRay Report ---
SINGLE VIEW CHEST CLINICAL HISTORY: Sepsis. FINDINGS: An AP, portable, upright chest radiograph is compared to study dated 08/06/2018 and correlat ed with chest CT dated 09/25/2020. The examination is degraded by portable technique and patient rotati on. The heart is mildly enlarged noting atherosclerotic calcification of the thoracic aorta. Emphysem a and chronic interstitial thickening is similar to previous. Multifocal airspace consolidation is se en throughout both lungs, right greater than left. No large pleural effusion or pneumothorax is seen. The skeletal structures are osteopenic. The bony thorax is grossly intact. IMPRESSION: 1. Multifocal airspace consolidation is typical for pneumonia. Clinical correlation will be required and radiographic follow-up to resolution is recommended. 2. Cardiomegaly and emphysema. ACT 112: Negative or not required by law. Electronically signed by: Lester Tom M.D. 02/04/2021 12:57 PM
[2021-02-04] MEDS ORDERED: OPTIRAY 320 125ml IV ONE (13:59)
--- NOTE | 2021-02-04 14:02 | CT Scan Report ---
CT SCAN OF THE BRAIN WITHOUT IV CONTRAST CLINICAL HISTORY: Change in mental status. COMPARISON STUDY: No priors. TECHNIQUE: Unenhanced axial CT scan of the brain is performed from the vertex to the skull base. A do se lowering technique was utilized adhering to the principles of ALARA. The examination is modestly d egraded by motion artifact. CT DOSE: 1168.49 mGycm FINDINGS: Brain parenchyma: There are age-related involutional changes noting moderate to advanced subcortical and periventricular microangiopathic change. There is no hemorrhage, mass effect, or evidence of acu te territorial ischemia by CT criteria. Shepherd-white matter differentiation is preserved. No extra-axia l fluid collection is seen. Ventricles, sulci, cisterns: Prominent secondary to involutional change. Intracranial vasculature: There is atherosclerotic calcification of the cavernous carotid and vertebr al arteries. Calvarium: Unremarkable. Sinuses and mastoids: The visualized paranasal sinuses are clear. There is a small right mastoid effu jess. The left mastoid air cells are well pneumatized. Orbits: The bony orbits are grossly intact. IMPRESSION: There is no hemorrhage, mass effect, or evidence of acute territorial ischemia by CT nico gil. ACT 112: Negative or not required by law. Electronically signed by: Lester Tom M.D. 02/04/2021 2:01 PM
--- NOTE | 2021-02-04 14:25 | CT Scan Report ---
CT angio chest PE protocol HISTORY: 70 years-old Male with hypoxia jacqui covid + ro JACQUI. Acute shortness of breath. COVID P ositive. History of lymphoma. TECHNIQUE: Multiple CTA images of the chest were obtained after the intravenous administration of 122 ml Optiray. Coronal and sagittal MIPS were obtained from the axial data set and were submitted for review. All measurements were obtained according to NASCET criteria. A dose lowering technique was u tilized adhering to the principles of ALARA. COMPARISON: Chest radiograph of same day, chest CT 09/25/2020 FINDINGS: Limited study secondary to upper extremity positioning. CTA: The heart is normal in size. Trace pericardial effusion. Mild coronary artery calcifications. Mild at herosclerosis of the thoracic aorta. There is patency of the imaged great vessels. Mild descending th oracic aortic tortuosity. The segmental and subsegmental pulmonary arterial branches are suboptimally evaluated secondary to respiratory motion artifact. No filling defects identified to suggest thrombo embolic disease. CT CHEST: No thyroid nodule. 11 mm pretracheal lymph node on image 144 series 6 previously measured 7 mm. 1.4 c m subcarinal and right hilar adenopathy has also progressed from prior. Trace pleural effusions. No pneumothorax. Mild emphysema. Mild intralobular septal thickening with pa tchy multifocal bilateral groundglass opacities. No suspicious pulmonary nodules or masses are identi fied. The central airways are patent. Small hiatal hernia. No acute process of the imaged upper abdomen. Unremarkable soft tissues. No acut e fracture. Degenerative changes of the shoulders and spine. Unchanged appearance of the left scapula r body. IMPRESSION: 1. Multifocal bilateral groundglass opacities are compatible with viral pneumonia. 2. Mild associated intralobular septal thickening may represent a component of pulmonary edema. 3. Mild mediastinal and hilar adenopathy is new from 09/25/2020. This is likely reactive and less likel y related to the patient's known lymphoma. Attention at follow-up recommended. 4. Trace pleural effusions. 5. Small hiatal hernia. ACT 112: Negative or not required by law. The above report was generated using voice recognition software. It may contain grammatical, syntax o r spelling errors. Electronically signed by: Michael Peterson M.D. 02/04/2021 2:24 PM
--- NOTE | 2021-02-04 15:08 | History & Physical Report ---
Date of Service February 04, 2021 Assessment & Plan (1) COVID: Plan: Unvaccinated. Unclear exact onset of symptoms, patient reports 2 weeks but 7 days reported by his . diagnosed on 01/25. COVID isolation precautions. Dexamethasone 6mg IV daily. Consult pulmonology for remdesivir and baricitinib recommendations (CRP 13.8) Poor prognosis given unvaccinated status, high flow oxygen / BiPAP and poor baseline discussed with patient and his - initially told ER she wanted everything done however intubation would likely be futile and patient able to make his own decisions currently and definitively does not wish to be intubated. This appears to align with his prior reluctance to even come to the hospital in the first place over the last 2 days. (2) Acute respiratory failure with hypoxia: Plan: Aim O2 sats > 90%. Currently on BiPAP but can switch to high flow on COVID phillip. (3) ARDS (adult respiratory distress syndrome): Plan: As above (4) Hyponatremia: Plan: Pulmonary edema on exam suggests some hypervolemia. Lasix 40mg IV Strict I&Os - aim for slightly negative balance. Repeat BMP in AM (5) Pulmonary edema: Plan: As above for hyponatremia (6) Current smoker: Plan: Consider nicotine patch if needed Greater than 80-ozgf-musl smoking history (7) COPD with emphysema: Plan: Continue his routine inhalers (8) BPH w urinary obs/LUTS: Plan: Continue tamsulosin 0.4mg PO HS Recommend bernabe catheter given poor respiratory status he cannot move to urinate currently (9) Diffuse large B-cell lymphoma of intra-abdominal lymph nodes: Plan: Incidentally picked on renal cancer surveillance. Prior rituximab 11/2019. No current treatment. Asymptomatic form this per last oncology note. (10) PAD (peripheral artery disease): Plan: Continue aspirin, atorvastatin (11) Hypertension: Plan: Hold amlodipine in setting of relative hypotension with current infection and Lasix use as above. 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 Currently on surveillance only. Plan: VTE Prophylaxis - Lovenox 40mg SQ BID Diet - NPO given poor respiratory status currently Disposition - admit to PCU Admission and Anticipated Discharge Date Admission Date: February 04, 2021 History of Present Illness Primary Care Provider: Reza Sahu DO Desean Alonso is a 70 year old male who presents to the ER with shortness of breath. His has known COVID-19 pneumonia and the patient assumes he has had it for the last 2 weeks. Main symptom of fatigue and shortness of breath. Difficulty taking full history however due to need for BiPAP and patient in acute respiratory distress. He denies any diarrhea, loss of taste or smell, chest pain, abdominal pain, nasal congestion. He is unvaccinated. He is adamant he does not wish to be intubated. Updated his over the phone. Initially told ER physician she wanted everything possibly done for her but after I told her I discussed intubation and CPR with him and he was quite adamant he did not want this she is in agreement. He has been reluctant to even come to the hospital for the last 2 days. In the ER he is currently maintaining O2 sats > 94% on BiPAP FiO2 60%. SARS COV- 2 PCR positive. He was referred to medicine for admission and ongoing management of COVID-19 pneumonia. Allergies Allergy/AdvReac Type Severity Reaction Status Date / Time No Known Allergies Allergy Verified 02/04/21 14:47 Home Medications Medication Instructions Recorded Confirmed Type multivitamin 1 tab PO DAILY 03/01/19 02/04/21 History albuterol sulfate 90 mcg/actuation 2 puff INH Q6H PRN #18 gm 06/24/20 02/04/21 Rx aerosol inhaler tiotropium 2.5 mcg-olodaterol 2.5 2 puff INHALATION DAILY #3 inhaler 06/24/20 02/04/21 Rx mcg/actuation mist for inhalation (Stiolto Respimat) tamsulosin 0.4 mg capsule 0.4 mg PO HS #90 cap 06/25/20 02/04/21 Rx amlodipine 2.5 mg tablet 2.5 mg PO DAILY #90 tab 07/06/20 02/04/21 Rx atorvastatin 20 mg tablet 20 mg PO DAILY #90 tab 09/23/20 02/04/21 Rx omeprazole 40 mg capsule,delayed 40 mg PO DAILY #90 cap 09/23/20 02/04/21 Rx release aspirin 81 mg tablet,delayed 81 mg PO DAILY 02/04/21 02/04/21 History release (Aspirin Low Dose) Past Med/Surg History Medical History Anemia Anemia Aortic atherosclerosis Stafford esophagus Benign localized prostatic hyperplasia with lower urinary tract symptoms (LUTS) Chromophobe renal cell carcinoma Chronic obstructive pulmonary disease, unspecified Coronary artery calcification Current smoker Elevated PSA Gastroesophageal reflux disease History of adenocarcinoma of lung Hyperglycemia Hyperlipidemia Hypertension PAD (peripheral artery disease) Pulmonary emphysema Recurrent inguinal hernia of right side without obstruction or gangrene Renal mass Surgical History History of arthroscopy 2017 left lower lobectomy and mediastinal lymph node dissection History of kidney surgery History of lobectomy of lung S/P hernia repair S/P tonsillectomy and adenoidectomy S/P tooth extraction Status post insertion of iliac artery stent Family History Mother , age 76 Myocardial infarction Alzheimer disease Stroke syndrome Grandmother Diabetes Brother , age 43 Acute meningococcemia Bacterial meningitis Sister , age 27 MVA (motor vehicle accident) Father , age 62 Cardiac disorder Myocardial infarction Sister No problems noted. Sister No problems noted. Sister No problems noted. Sister No problems noted. Son No problems noted. Son No problems noted. Daughter No problems noted. 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 Beliefs That Will Affect Care: None marital status: Current Living Situation: Spouse current occupational status: employed current occupation: works 3 days How many Children do You have: 3 Feels Safe at Home: Yes Childhood Exposure to Second-Hand Smoke: Yes caffeine: Yes (10-12 cups per day tea one cup per day) during the past year weight has: remained stable Dental Care, Regularly: No Physical Activity Frequency: 1-2 Times per Week Seatbelt Use: always Sunscreen Use: No Review of Systems Review of Systems: All systems reviewed & are unremarkable except as noted in HPI & below Physical Exam Constitutional: + acute distress (respiratory); + not well nourished ENMT: Mouth: + dry oral mucous membranes Neck: trachea midline, no thyromegaly Respiratory: + respiratory distress, + labored breathing, + retractions, + uses accessory muscles and + cough; + not able to speak in complete sentence Auscultation: + diminished lung sounds (throughout) and + crackles (fine throughout); no rales, no rhonchi and no wheezes Cardiovascular: Rate/Rhythm: regular rhythm and + tachycardic Heart Sounds: no murmur Extremities: normal capillary refill; no calf tenderness and no pedal edema Gastrointestinal (Abdomen): normal bowel sounds, soft, nontender, no hepatosplenomegaly Musculoskeletal: no cyanosis or clubbing, extremities motor strength 5/5 Skin: no rashes, warm and dry Neurologic: moves all extremities and awake; not confused Psychiatric: Orientation: alert, oriented to person, oriented to place and oriented to time Affect: euthymic affect Genitourinary: no CVA tenderness Results & Data Results & Data ([facility]) Vital Signs (Past 12 Hours) Vital Signs Temp Pulse Resp BP Pulse Ox 02/04/21 15:00 26 H 96 02/04/21 14:53 83 24 97 02/04/21 14:30 86 32 H 136/75 90 02/04/21 14:07 80 25 H 92 02/04/21 14:01 94 02/04/21 13:30 82 37 H 92 02/04/21 13:00 84 29 H 134/68 96 02/04/21 12:56 24 96 02/04/21 12:30 85 29 H 94 02/04/21 12:00 95 H 23 93 02/04/21 11:56 23 93 02/04/21 11:55 93 H 94 02/04/21 11:50 90 35 H 92 02/04/21 11:30 94 H 32 H 107/88 80 L 02/04/21 11:26 37.4 C 93 H 26 H 137/67 79 L 02/04/21 11:15 93 H 38 H [address] SCAN OF THE BRAIN WITHOUT IV CONTRAST CLINICAL HISTORY: Change in mental status. COMPARISON STUDY: No priors. TECHNIQUE: Unenhanced axial CT scan of the brain is performed from the vertex to the skull base. A dose lowering technique was utilized adhering to the principles of ALARA. The examination is modestly degraded by motion artifact. CT DOSE: 1168.49 mGycm FINDINGS: Brain parenchyma: There are age-related involutional changes noting moderate to advanced subcortical and periventricular microangiopathic change. There is no hemorrhage, mass effect, or evidence of acute territorial ischemia by CT criteria. Shepherd-white matter differentiation is preserved. No extra-axial fluid collection is seen. Ventricles, sulci, cisterns: Prominent secondary to involutional change. Intracranial vasculature: There is atherosclerotic calcification of the cavernous carotid and vertebral arteries. Calvarium: Unremarkable. Sinuses and mastoids: The visualized paranasal sinuses are clear. There is a small right mastoid effusion. The left mastoid air cells are well pneumatized. Orbits: The bony orbits are grossly intact. IMPRESSION: There is no hemorrhage, mass effect, or evidence of acute territorial ischemia by CT criteria. SINGLE VIEW CHEST CLINICAL HISTORY: Sepsis. FINDINGS: An AP, portable, upright chest radiograph is compared to study dated 08/06/2018 and correlated with chest CT dated 09/25/2020. The examination is degraded by portable technique and patient rotation. The heart is mildly enlarged noting atherosclerotic calcification of the thoracic aorta. Emphysema and chronic interstitial thickening is similar to previous. Multifocal airspace consolidation is seen throughout both lungs, right greater than left. No large pleural effusion or pneumothorax is seen. The skeletal structures are osteopenic. The bony thorax is grossly intact. IMPRESSION: 1. Multifocal airspace consolidation is typical for pneumonia. Clinical correlation will be required and radiographic follow-up to resolution is recommended. 2. Cardiomegaly and emphysema. CT angio chest PE protocol HISTORY: 70 years-old Male with hypoxia govind covid + ro GOVIND. Acute shortness of breath. COVID Positive. History of lymphoma. TECHNIQUE: Multiple CTA images of the chest were obtained after the intravenous administration of 122 ml Optiray. Coronal and sagittal MIPS were obtained from the axial data set and were submitted for review. All measurements were obtained according to NASCET criteria. A dose lowering technique was utilized adhering to the principles of ALARA. COMPARISON: Chest radiograph of same day, chest CT 09/25/2020 FINDINGS: Limited study secondary to upper extremity positioning. CTA: The heart is normal in size. Trace pericardial effusion. Mild coronary artery calcifications. Mild atherosclerosis of the thoracic aorta. There is patency of the imaged great vessels. Mild descending thoracic aortic tortuosity. The segmental and subsegmental pulmonary arterial branches are suboptimally evaluated secondary to respiratory motion artifact. No filling defects identified to suggest thromboembolic disease. CT CHEST: No thyroid nodule. 11 mm pretracheal lymph node on image 144 series 6 previously measured 7 mm. 1.4 cm subcarinal and right hilar adenopathy has also progressed from prior. Trace pleural effusions. No pneumothorax. Mild emphysema. Mild intralobular septal thickening with patchy multifocal bilateral groundglass opacities. No suspicious pulmonary nodules or masses are identified. The central airways are patent. Small hiatal hernia. No acute process of the imaged upper abdomen. Unremarkable soft tissues. No acute fracture. Degenerative changes of the shoulders and spine. Unchanged appearance of the left scapular body. IMPRESSION: 1. Multifocal bilateral groundglass opacities are compatible with viral pneumonia. 2. Mild associated intralobular septal thickening may represent a component of pulmonary edema. 3. Mild mediastinal and hilar adenopathy is new from 09/25/2020. This is likely reactive and less likely related to the patient's known lymphoma. Attention at follow-up recommended. 4. Trace pleural effusions. 5. Small hiatal hernia. Medications Administered ER Medications Given: Dexamethasone 6mg IV ECG Indication: SOB/dyspnea Rate (beats per minute): 89 Rhythm: normal sinus Findings: + other (non specific T wave changes in anterior/inferior leads) Comparison ECG Date: from (May 24, 2016) Change: the following changes noted (T wave flattening is new) Code Status & VTE Plan Code Status DNR/DNI as discussed with the patient. Discussed this with his and she agrees with his wishes. VTE Prophylaxis Plan VTE Prophylaxis will be ordered: Yes PG Care Time/CCT Total # of Minutes Spent Total Time Spent with Patient: Total time spent is greater than 50% in coordinat ion of care (as documented) at patient's floor/unit and/or counseling patient: Coding Level of Care Code 11304 Initial Inpt Care Lvl 3 Diagnoses COVID U07.1 ARDS (adult respiratory distress syndrome) J80 Current smoker F17.200 COPD with emphysema J43.9 BPH w urinary obs/LUTS N40.1; N13.8 Diffuse large B-cell lymphoma of intra-abdominal lymph nodes C83.33 PAD (peripheral artery disease) I73.9 Hyponatremia E87.1 Pulmonary edema J81.1 Hypertension I10 Hyperlipidemia E78.5 Stafford esophagus K22.70 Chromophobe renal cell carcinoma C64.9 Acute respiratory failure with hypoxia J96.01
[2021-02-04 15:10] LABS: Appearance Urine Clear (Clear); Bacteria Urine Automated Negative (Negative); Bilirubin Urine Negative (Negative); Blood Urine 1+ (Negative); Cast Urine Automated 0 /lpf (0-5); Color Urine Yellow; Glucose Urine UA Negative (Negative); Ketones Urine Negative (Negative); Leukocyte Esterase Urine Negative (Negative); Nitrite Urine Negative (Negative); Protein Urine 1+ (Negative); RBC Urine Automated 0-4 /hpf (0-4); Specific Gravity Urine 1.018 (1.000-1.030); Urobilinogen Urine Negative (Negative)
--- NOTE | 2021-02-04 16:14 | Pulmonary Consultation ---
Date of Consultation February 04, 2021 Assessment & Plan (1) COVID: (2) ARDS (adult respiratory distress syndrome): (3) COPD with emphysema: Impression: 70-year-old male with history of renal cell cancer, diffuse large B-cell lymphoma, and lung cancer currently in remission now with Covid pn eumonia and ARDS physiology. He clearly states that he does not want to be intubated or undergo CPR and when I saw him he was actually requesting that the BiPAP be removed. When I advised him that this may result in his he nods his head and appears to agree although I am not sure that he currently has capacity and may be suffering from some acute delirium. Recommendations: 1. Covid: Continue dexamethasone 6 mg daily. The patient was screened and appears to meet criteria for baricitinib. He was counseled regarding risks. This is additional immunosuppressive medication. Its been shown to potentially delay progression of Covid pneumonitis. He expressed understanding and is in agreement. Recommedn DVT prophalaxis per ACCP guidelines - either lovenox or heparin. 2. We will check BNP. If it is elevated may consider empiric diuresis. Hold on echocardiogram for now. 3. Procalcitonin negative so do not see a role for antibiotics currently. 4. COPD: Continue Anoro and as needed rescue albuterol/DuoNeb's. Will place on nebulized budesonide. 5. Continue to wean oxygen as tolerated. If the patient wants to come off BiPAP, may be reasonable to pursue a trial of heated high flow oxygen titrated to keep saturations at or above 90%. Again the patient reiterated his desire to not pursue intubation or mechanical ventilation. 6. We will consult palliative care given the patient's critical illness and desire to not pursue aggressive interventions. If he elects to transition to comfort care, palliative medicine input would be beneficial Thanks for the opportunity of caring for this patient. We will continue to follow with you. Feel free to contact us if we can be of additional assistance History of Present Illness History of Present Illness Asked by hospitalist to evaluate this patient with hypoxemic respiratory failure, underlying lung disease, history of lung cancer and diffuse B-cell lymphoma and COPD admitted with Covid pneumonitis and acute hypoxemic respiratory failure. This 70-year-old male has been followed by Dr. Wynn in the outpatient setting. He was last seen about 6 months ago. His PFTs last year showed an FEV1 of 79% predicted with a DLCO of 56% predicted. Patient is status post left lower lobectomy May 2016 and has underlying emphysema. He is also status post partial nephrectomy due to renal cell carcinoma as well as abdominal lymphoma status post Rituxan chemotherapy and radiation therapy in 2019. The patient elected to not be vaccinated for Covid. He states that he has been ill for about 2 weeks. His and he have both tested positive for Covid. He was brought to the emergency room today due to increasing shortness of breath. He was found to be tachypneic. Initially was placed on a nonrebreather. He was transitioned to BiPAP. There was initial concern about him needing intensive care unit however the patient is quite adamant about being DNR/DNI therefore he is being admitted to the telemetry floor. CRP was checked and is high. CT scan was performed and demonstrates diffuse parenchymal groundglass opacities. Allergies Allergy/AdvReac Type Severity Reaction Status Date / Time No Known Allergies Allergy Verified 02/04/21 14:47 Home Medications Medication Instructions Recorded Confirmed Type multivitamin 1 tab PO DAILY 03/01/19 02/04/21 History albuterol sulfate 90 mcg/actuation 2 puff INH Q6H PRN #18 gm 06/24/20 02/04/21 Rx aerosol inhaler tiotropium 2.5 mcg-olodaterol 2.5 2 puff INHALATION DAILY #3 inhaler 06/24/20 02/04/21 Rx mcg/actuation mist for inhalation (Stiolto Respimat) tamsulosin 0.4 mg capsule 0.4 mg PO HS #90 cap 06/25/20 02/04/21 Rx amlodipine 2.5 mg tablet 2.5 mg PO DAILY #90 tab 07/06/20 02/04/21 Rx atorvastatin 20 mg tablet 20 mg PO DAILY #90 tab 09/23/20 02/04/21 Rx omeprazole 40 mg capsule,delayed 40 mg PO DAILY #90 cap 09/23/20 02/04/21 Rx release aspirin 81 mg tablet,delayed 81 mg PO DAILY 02/04/21 02/04/21 History release (Aspirin Low Dose) Patient History Medical History Anemia Anemia Aortic atherosclerosis Stafford esophagus Benign localized prostatic hyperplasia with lower urinary tract symptoms (LUTS) Chromophobe renal cell carcinoma Chronic obstructive pulmonary disease, unspecified Coronary artery calcification Current smoker Elevated PSA Gastroesophageal reflux disease History of adenocarcinoma of lung Hyperglycemia Hyperlipidemia Hypertension PAD (peripheral artery disease) Pulmonary emphysema Recurrent inguinal hernia of right side without obstruction or gangrene Renal mass Surgical History History of arthroscopy History of kidney surgery History of lobectomy of lung S/P hernia repair S/P tonsillectomy and adenoidectomy S/P tooth extraction Status post insertion of iliac artery stent Family History Mother Myocardial infarction Alzheimer disease Stroke syndrome Grandmother Diabetes Brother Acute meningococcemia Bacterial meningitis Sister MVA (motor vehicle accident) Father Cardiac disorder Myocardial infarction Sister No problems noted. Sister No problems noted. Sister No problems noted. Sister No problems noted. Son No problems noted. Son No problems noted. Daughter No problems noted. Denies family history of Ovarian cancer Prostate cancer Breast cancer Lung cancer Colorectal cancer Social History Smoking Status: Unknown if ever smoked Tobacco Type: Cigarettes Age Started Using Tobacco: 5; packs per day: 0.25; Years Smoked: 63; Cigarettes Per Day: 20; Second Hand Exposure: Yes; Hx Alcohol Use: Yes Alcohol type: beer Alcohol Intake Frequency: Monthly or Less Hx Substance Use: No Preferred Language: Zimbabwean Hearing Ability: Normal Beliefs That Will Affect Care: None marital status: Current Living Situation: Spouse current occupational status: employed current occupation: works 3 days How many Children do You have: 3 Feels Safe at Home: Yes Childhood Exposure to Second-Hand Smoke: Yes caffeine: Yes (10-12 cups per day tea one cup per day) during the past year weight has: remained stable Dental Care, Regularly: No Physical Activity Frequency: 1-2 Times per Week Seatbelt Use: always Sunscreen Use: No Review of Systems Review of Systems: Please refer to the admission H&P. I have no additions or deletions Physical Exam Constitutional: Elderly male. He is tachypneic on full face BiPAP. He appears confused and potentially slightly delirious Neck: trachea midline, no thyromegaly Respiratory: + respiratory distress, + labored breathing and + tachypneic Auscultation: + crackles Cardiovascular: RRR, no murmur, no edema Gastrointestinal (Abdomen): normal bowel sounds, soft, nontender, no hepatosplenomegaly Musculoskeletal: Extremities: extremities normal to inspection Skin: no rashes, warm and dry Neurologic: Nonfocal exam Lymphatic: no cervical lymphadenopathy Results & Data Results & Data ([facility]) Vital Signs (Past 12 Hours) Vital Signs Temp Pulse Resp BP Pulse Ox 02/04/21 15:56 25 H 96 02/04/21 15:00 26 H 96 02/04/21 14:53 83 24 97 02/04/21 14:30 86 32 H 136/75 90 02/04/21 14:07 80 25 H 92 02/04/21 14:01 94 02/04/21 13:30 82 37 H 92 02/04/21 13:00 84 29 H 134/68 96 02/04/21 12:56 24 96 02/04/21 12:30 85 29 H 94 02/04/21 12:00 95 H 23 93 02/04/21 11:56 23 93 02/04/21 11:55 93 H 94 02/04/21 11:50 90 35 H 92 02/04/21 11:30 94 H 32 H 107/88 80 L 02/04/21 11:26 37.4 C 93 H 26 H 137/67 79 L 02/04/21 11:15 93 H 38 H 85 L Laboratory Results 02/04/21 11:40 02/04/21 11:40 Blood gas showed a pH 7.50 with a PCO2 27 PO2 of 59 Calcium 7.7 Liver function test with mild elevation of ALT of 148 CRP 13.8 Procalcitonin 0[address] of the chest from today was independently reviewed. The patient is status post left lower lobectomy. There are diffuse groundglass opacities bilaterally with some septal thickening. He has some mild adenopathy. Trace effusions. Head CT from today unremarkable. PG Care Time/CCT Total # of Minutes Spent Total Time Spent with Patient: Total time spent is greater than 50% in coordination of care (as documented) at patient's floor/unit and/or counseling patient: Coding Level of Care Code 67028 Initial Inpt Care Lvl 3 Diagnoses COVID U07.1 ARDS (adult respiratory distress syndrome) J80 COPD with emphysema J43.9
[2021-02-04] MEDS ORDERED: 2 mg Once Daily x14 days PO ONE (16:15)
[2021-02-04] MEDS ORDERED: FUROSEMIDE 40 MG/4 ML VIAL IV STA (16:38)
[2021-02-04] MEDS: BUDESONIDE 0.5 MG/2 ML VIAL (PULMICORT) NEB SCH (19:13)
[2021-02-04] MEDS ORDERED: ACETAMINOPHEN 325 MG TAB PO PRN (19:14)
--- NOTE | 2021-02-04 20:24 | Emergency Department Note ---
History of Present Illness General Chief complaint: Illness Stated complaint: FEVER, COUGH, ILLNESS, WEAKNESS Time Seen by Provider: 02/04/21 11:25 Source: EMS and RN notes reviewed History of Present Illness Provider complaint: Shortness of breath weakness Onset (ago): day(s) 2 70-year-old male presents emergency department with shortness of breath and weakness. Patient has a history of lung cancer and COPD. Patient is not vaccine gets COVID-19. Patient's recently tested positive for COVID-19. EMS reports that the called EMS because he has been more short of breath and weak. Patient is unvaccinated versus COVID-19. Home Medications Medication Instructions Recorded Confirmed Type multivitamin 1 tab PO DAILY 03/01/19 02/04/21 History albuterol sulfate 90 mcg/actuation 2 puff INH Q6H PRN #18 gm 06/24/20 02/04/21 Rx aerosol inhaler tiotropium 2.5 mcg-olodaterol 2.5 2 puff INHALATION DAILY #3 inhaler 06/24/20 02/04/21 Rx mcg/actuation mist for inhalation (Stiolto Respimat) tamsulosin 0.4 mg capsule 0.4 mg PO HS #90 cap 06/25/20 02/04/21 Rx amlodipine 2.5 mg tablet 2.5 mg PO DAILY #90 tab 07/06/20 02/04/21 Rx atorvastatin 20 mg tablet 20 mg PO DAILY #90 tab 09/23/20 02/04/21 Rx omeprazole 40 mg capsule,delayed 40 mg PO DAILY #90 cap 09/23/20 02/04/21 Rx release aspirin 81 mg tablet,delayed 81 mg PO DAILY 02/04/21 02/04/21 History release (Aspirin Low Dose) Allergies Allergy/AdvReac Type Severity Reaction Status Date / Time No Known Allergies Allergy Verified 02/04/21 14:47 Past Med/Surg History Medical History Anemia Anemia Aortic atherosclerosis Stafford esophagus Benign localized prostatic hyperplasia with lower urinary tract symptoms (LUTS) Chromophobe renal cell carcinoma Chronic obstructive pulmonary disease, unspecified Coronary artery calcification Current smoker Elevated PSA Gastroesophageal reflux disease History of adenocarcinoma of lung Hyperglycemia Hyperlipidemia Hypertension PAD (peripheral artery disease) Pulmonary emphysema Recurrent inguinal hernia of right side without obstruction or gangrene Renal mass Surgical History History of arthroscopy 2017 left lower lobectomy and mediastinal lymph node dissection History of kidney surgery History of lobectomy of lung S/P hernia repair S/P tonsillectomy and adenoidectomy S/P tooth extraction Status post insertion of iliac artery stent Family History Mother , age 76 Myocardial infarction Alzheimer disease Stroke syndrome Grandmother Diabetes Brother , age 43 Acute meningococcemia Bacterial meningitis Sister , age 27 MVA (motor vehicle accident) Father , age 62 Cardiac disorder Myocardial infarction Sister No problems noted. Sister No problems noted. Sister No problems noted. Sister No problems noted. Son No problems noted. Son No problems noted. Daughter No problems noted. Denies family history of Ovarian cancer Prostate cancer Breast cancer Lung cancer Colorectal cancer Social History Smoking Status: Current every day smoker Tobacco Type: Cigarettes Age Started Using Tobacco: 5; packs per day: 0.25; Years Smoked: 64; Cigarettes Per Day: 20; Second Hand Exposure: Yes; Hx Alcohol Use: No Hx Substance Use: No Preferred Language: Kinyarwanda Communication Ability: Effective Hearing Ability: Normal Heel Emery Buffer Required: No Beliefs That Will Affect Care: None marital status: Current Living Situation: Spouse current occupational status: employed current occupation: works 3 days How many Children do You have: 3 Feels Safe at Home: Yes Childhood Exposure to Second-Hand Smoke: Yes caffeine: Yes (10-12 cups per day tea one cup per day) during the past year weight has: remained stable Dental Care, Regularly: No Physical Activity Frequency: 1-2 Times per Week Seatbelt Use: always Sunscreen Use: No Review of Systems Unobtainable due to cognitive status Physical Exam Vital Signs Vital Signs - 24 hr 02/04/21 11:15 02/04/21 11:26 02/04/21 11:30 Temperature 37.4 C Temperature Source Oral Pulse Rate 93 H 93 H 94 H Pulse Rate from SpO2 Sensor 94 H Pulse Rhythm Regular Pulse Strength Normal Respiratory Rate 38 H 26 H 32 H Respiratory Effort / Characteristics Grunting Labored Nasal Flaring SOB on Exertion Respiratory Depth Respiratory Pattern Tachypnea Blood Pressure 137/67 107/88 Blood Pressure Mean 90 94 Blood Pressure Position Sitting Pulse Oximetry 85 L 79 L 80 L Oxygen Delivery Method Non-rebreather Oxygen Flow Rate 15 Fraction of Inspired Oxygen Sepsis Recent Fever Within 48 Hours Yes Sepsis New/Unexplained Change in Mental Status Yes Sepsis Action Taken by Nursing Physician Notified 02/04/21 11:50 02/04/21 11:55 02/04/21 11:56 Temperature Temperature Source Pulse Rate 90 Pulse Rate from SpO2 Sensor Pulse Rhythm Regular Pulse Strength Respiratory Rate 35 H 93 H 23 Respiratory Effort / Characteristics Spontaneous Short of Breath Non-Labored Spontaneous Non-Labored Spontaneous Respiratory Depth Normal Respiratory Pattern Tachypnea Blood Pressure Blood Pressure Mean Blood Pressure Position Pulse Oximetry 92 94 93 Oxygen Delivery Method BiPAP BiPAP BiPAP Oxygen Flow Rate Fraction of Inspired Oxygen 60 Sepsis Recent Fever Within 48 Hours Sepsis New/Unexplained Change in Mental Status Sepsis Action Taken by Nursing 02/04/21 12:00 02/04/21 12:30 02/04/21 12:56 Temperature Temperature Source Pulse Rate 95 H 85 Pulse Rate from SpO2 Sensor 94 H 85 Pulse Rhythm Pulse Strength Respiratory Rate 23 29 H 24 Respiratory Effort / Characteristics Non-Labored Spontaneous Respiratory Depth Respiratory Pattern Blood Pressure Blood Pressure Mean Blood Pressure Position Pulse Oximetry 93 94 96 Oxygen Delivery Method BiPAP Oxygen Flow Rate Fraction of Inspired Oxygen Sepsis Recent Fever Within 48 Hours Sepsis New/Unexplained Change in Mental Status Sepsis Action Taken by Nursing 02/04/21 13:00 02/04/21 13:30 02/04/21 14:01 Temperature Temperature Source Pulse Rate 84 82 Pulse Rate from SpO2 Sensor 84 82 87 Pulse Rhythm Pulse Strength Respiratory Rate 29 H 37 H Respiratory Effort / Characteristics Non-Labored Spontaneous Respiratory Depth Respiratory Pattern Blood Pressure 134/68 Blood Pressure Mean 90 Blood Pressure Position Pulse Oximetry 96 92 94 Oxygen Delivery Method BiPAP Oxygen Flow Rate Fraction of Inspired Oxygen Sepsis Recent Fever Within 48 Hours Sepsis New/Unexplained Change in Mental Status Sepsis Action Taken by Nursing 02/04/21 14:07 02/04/21 14:30 02/04/21 14:53 Temperature Temperature Source Pulse Rate 80 86 83 Pulse Rate from SpO2 Sensor 85 Pulse Rhythm Pulse Strength Respiratory Rate 25 H 32 H 24 Respiratory Effort / Characteristics Non-Labored Spontaneous Labored Respiratory Depth Normal Respiratory Pattern Blood Pressure 136/75 Blood Pressure Mean 95 Blood Pressure Position Pulse Oximetry 92 90 97 Oxygen Delivery Method BiPAP BiPAP Oxygen Flow Rate Fraction of Inspired Oxygen 50 60 Sepsis Recent Fever Within 48 Hours Sepsis New/Unexplained Change in Mental Status Sepsis Action Taken by Nursing 02/04/21 15:00 Temperature Temperature Source Pulse Rate 83 Pulse Rate from SpO2 Sensor 81 Pulse Rhythm Pulse Strength Respiratory Rate 37 H Respiratory Effort / Characteristics Non-Labored Spontaneous Respiratory Depth Respiratory Pattern Blood Pressure Blood Pressure Mean Blood Pressure Position Pulse Oximetry 97 Oxygen Delivery Method BiPAP Oxygen Flow Rate Fraction of Inspired Oxygen Sepsis Recent Fever Within 48 Hours Sepsis New/Unexplained Change in Mental Status Sepsis Action Taken by Nursing Physical Exam GENERAL: Patient in respiratory distress. HENT: Exam performed. - Head: Normocephalic and atraumatic. - Right Ear: External ear normal. No mastoid tenderness. - Left Ear: External ear normal. No mastoid tenderness. - Mouth/Throat: The oropharynx is clear and moist. No trismus in the jaw. No dental abscesses or uvula swelling. No oropharyngeal exudate or tonsillar abscesses. EYES: Conjunctivae and EOM are normal. Pupils are equal, round, and reactive to light. Right eye exhibits no discharge. Left eye exhibits no discharge. No scleral icterus. NECK: Normal range of motion. Neck supple. No JVD present. No spinous process tenderness present. No carotid bruit present. No rigidity. No tracheal deviation and normal range of motion present. CV: Normal rate, regular rhythm, normal heart sounds and intact distal pulses. There is no peripheral edema. Palpable radial pulses bue. PULM/CHEST: Tachypneic. Retractions bilaterally. Diminished breath sounds bilaterally. Rhonchi bilaterally. ABD: The abdomen is soft. Bowel sounds are normal. He has no distension. No mass is present. There is no tenderness. There is no rebound, no guarding, no Bae 's sign and no tenderness at McBurney's point. Rovsig negative. MUSC/SKEL: Normal range of motion. There is no peripheral edema, tenderness or deformity. LYMPH: No cervical adenopathy. NEURO: GCS eye subscore is 4. GCS verbal subscore is 4. GCS motor subscore is 6. Patient appears confused. Motor and sensation grossly intact. Course Course 1125: The patient was evaluated in room B2. A complete history and physical exam was performed Cardiac monitoring: An order was placed for continuous cardiac monitoring. The monitor shows a rate of 80 with sinus rhythm Patient was found to be 50 to 60% oxygen saturation on room air. Patient was placed on nonrebreather which did not improve his oxygen saturation much, it yola t up to 70%. Patient was started on high flow nasal cannula which also did not improve his oxygen saturation much. Patient was then switched to BiPAP which did improve his oxygen saturation to the low 90%. We will continue to monitor the patient. Patient remains tachypneic and if his oxygen saturations do not stay in the 88 to 92% range we will plan on intubating the patient. Decadron 6 mg IV push ordered for the patient as it is presumed that he has COVID-19 given his hypoxia, the fact that he is unvaccinated, and that his recently tested positive for COVID-19. 1230: Patient tolerating BiPAP well. Patient is oxygen saturation 92 to 96% on BiPAP. Patient's respiratory rate has improved. Patient does appear more alert. ABG shows a PCO2 of 27. 1330: Patient continues to tolerate BiPAP well. He is alert and oriented now. Spoke with the patient's Thalia [phone] she states that the patient does have a living will but she wants everything done for the patient including intubation if need be. Given this, we will plan on admitting the patient to the medicine service into the ICU. 1400: Patient continues to tolerate BiPAP well. Discussed with Dr. [facility] hospitalist who agrees to admit the patient. He is asking that we consult ICU Dr. Menjivar. Dr. Menjivar agrees to be on consult. 1430: Patient Covid positive. CTA negative for PE does show bilateral groundglass opacities. CT of the head normal. Administered Medications Budesonide (Budesonide 0.5 Mg/2 Ml Vial (Pulmicort)) 0.5 mg NEB [facility] Stop: 03/06/21 18:59 Last Admin: 02/04/21 19:13 Dose: 0.5 mg Documented by: [id number] Discontinued Medications Baricitinib (2 Mg Once Daily X14 Days) 2 mg PO .EXTRA DOSE ONE; Protocol Stop: 02/04/21 16:16 Last Admin: 02/04/21 17:08 Dose: 2 mg Documented by: [id number] Dexamethasone (Dexamethasone Sod Inj 4 Mg/Ml Vial) 6 mg IV NOW STA Stop: 02/04/21 11:26 Last Admin: 02/04/21 11:38 Dose: 6 mg Documented by: [id number] Furosemide (Furosemide 40 Mg/4 Ml Vial) 40 mg IV NOW STA Stop: 02/04/21 16:39 Last Admin: 02/04/21 17:08 Dose: 40 mg Documented by: [id number] Ioversol (Optiray 320 125ml) 122 ml IV ONCE ONE Stop: 02/04/21 14:00 Last Admin: 02/04/21 13:59 Dose: 122 ml Documented by: [id number] Critical Care Time Critical Care Time: Yes Total Critical Care Time: 83 I have personally spent greater than 83 minutes of critical care time in the direct management of this patient. This includes bedside care, interpretation of diagnostic studies, and testing, discussion with consultants, patient, and family members, and other required patient management activities. This 83 minutes is in excess of all separately billable procedures. Medical Decision Making Laboratory Data Result diagrams: 02/04/21 11:40 02/04/21 11:40 Lab Results 02/04/21 02/04/21 02/04/21 Range/Units 11:40 11:40 11:40 WBC 7.98 (4.8-10.8) K/uL RBC 3.98 L (4.7-6.1) M/uL Hgb 12.9 L (14.0-18.0) g/dL Hct 35.8 L (42-52) % MCV 89.9 (80-100) fL MCH 32.4 (25-34) pg MCHC 36.0 (32-36) g/dL RDW Std Deviation 43.6 (36.4-46.3) fL RDW Coeff of [place] 13.2 (11.5-14.5) % Plt Count 241 (130-400) K/uL MPV 10.1 (7.4-10.4) fL Immature Gran % (Auto) 0.4 % Neut % (Auto) 86.3 % Lymph % (Auto) 9.5 % [place] % (Auto) 3.5 % Eos % (Auto) 0.0 % Baso % (Auto) 0.3 % Neut # (Auto) 6.89 H (1.4-6.5) K/uL Lymph # (Auto) 0.76 L (1.2-3.4) K/uL [place] # (Auto) 0.28 (0.11-0.59) K/uL Eos # (Auto) 0.00 (0-0.5) K/uL Baso # (Auto) 0.02 (0-0.2) K/uL Immature Gran # (Auto) 0.03 H (0.00-0.02) K/uL PT 9.9 (9.0-12.0) Seconds INR 1.0 (0.9-1.1) APTT 29.9 (21.0-31.0) Seconds PTT Ratio 1.1 ABG pH (7.35-7.45) ABG pCO2 (35-46) mmHg ABG pO2 (80-95) mmHg ABG HCO3 (19-24) mmol/L ABG O2 Saturation (90-95) % ABG Base Excess (-9-1.8) mEq/L Ori Test (Pos) Barometric Pressure mm/Hg Oxygen Given Sodium 126 L (136-145) mmol/L Potassium 4.2 (3.5-5.1) mmol/L Chloride 95 L (98-107) mmol/L Carbon Dioxide 24 (21-32) mmol/L Anion Gap 7.0 (3-11) BUN 13 (7-18) mg/dl Creatinine 1.34 (0.6-1.4) mg/dl Est Cr Clr Drug Dosing 51.0 ml/min Est GFR ( Amer) 61.3 ml/min Est GFR (Non-Af Amer) 52.9 ml/min BUN/Creatinine Ratio 9.9 L (10-20) Glucose 93 (70-99) mg/dl Lactate (0.4-2.0) mmol/L Calcium 7.7 L (8.5-10.1) mg/dl Magnesium 2.0 (1.8-2.4) mg/dl Total Bilirubin 0.7 (0.2-1) mg/dl AST 148 H (15-37) U/L ALT 69 (12-78) U/L Alkaline Phosphatase 105 (45-117) U/L C-Reactive Protein (0-0.29) mg/dl NT-Pro-B Natriuret Pep (0-900) pg/ml Total Protein 6.1 L (6.4-8.2) gm/dl Albumin 2.4 L (3.4-5.0) gm/dl Globulin 3.7 (2.5-4.0) gm/dl Albumin/Globulin Ratio 0.6 L (0.9-2) Procalcitonin (0-0.5) ng/ml Urine Color Urine Appearance (Clear) Urine pH (4.5-7.5) Ur Specific [place] (1.000-1.030) Urine Protein (Negative) Urine Glucose (UA) (Negative) Urine Ketones (Negative) Urine Blood (Negative) Urine Nitrite (Negative) Urine Bilirubin (Negative) Urine Urobilinogen (Negative) Ur Leukocyte Esterase (Negative) Urine WBC (Auto) (0-5) /hpf Urine RBC (Auto) (0-4) /hpf U Hyaline Cast (Auto) (0-5) /lpf U Epithel Cells (Auto) (0-5) /lpf Urine Bacteria (Auto) (Negative) COVID-19 Eval Order SARS-CoV-2 (PCR) (Negative) Influ A Molecular Assay (Negative) Influ B Molecular Assay (Negative) 02/04/21 02/04/21 02/04/21 Range/Units 11:40 11:40 11:40 WBC (4.8-10.8) K/uL RBC (4.7-6.1) M/uL Hgb (14.0-18.0) g/dL Hct (42-52) % MCV (80-100) fL MCH (25-34) pg MCHC (32-36) g/dL RDW Std Deviation (36.4-46.3) fL RDW Coeff of [place]orge (11.5-14.5) % Plt Count (130-400) K/uL MPV (7.4-10.4) fL Immature Gran % (Auto) % Neut % (Auto) % Lymph % (Auto) % [place] % (Auto) % Eos % (Auto) % Baso % (Auto) % Neut # (Auto) (1.4-6.5) K/uL Lymph # (Auto) (1.2-3.4) K/uL [place] # (Auto) (0.11-0.59) K/uL Eos # (Auto) (0-0.5) K/uL Baso # (Auto) (0-0.2) K/uL Immature Gran # (Auto) (0.00-0.02) K/uL PT (9.0-12.0) Seconds INR (0.9-1.1) APTT (21.0-31.0) Seconds PTT Ratio ABG pH (7.35-7.45) ABG pCO2 (35-46) mmHg ABG pO2 (80-95) mmHg ABG HCO3 (19-24) mmol/L ABG O2 Saturation (90-95) % ABG Base Excess (-9-1.8) mEq/L Ori Test (Pos) Barometric Pressure mm/Hg Oxygen Given Sodium (136-145) mmol/L Potassium (3.5-5.1) mmol/L Chloride (98-107) mmol/L Carbon Dioxide (21-32) mmol/L Anion Gap (3-11) BUN (7-18) mg/dl Creatinine (0.6-1.4) mg/dl Est Cr Clr Drug Dosing ml/min Est GFR ( Amer) ml/min Est GFR (Non-Af Amer) ml/min BUN/Creatinine Ratio (10-20) Glucose (70-99) mg/dl Lactate 1.4 (0.4-2.0) mmol/L Calcium (8.5-10.1) mg/dl Magnesium (1.8-2.4) mg/dl Total Bilirubin (0.2-1) mg/dl AST (15-37) U/L ALT (12-78) U/L Alkaline Phosphatase (45-117) U/L C-Reactive Protein (0-0.29) mg/dl NT-Pro-B Natriuret Pep (0-900) pg/ml Total Protein (6.4-8.2) gm/dl Albumin (3.4-5.0) gm/dl Globulin (2.5-4.0) gm/dl Albumin/Globulin Ratio (0.9-2) Procalcitonin (0-0.5) ng/ml Urine Color Urine Appearance (Clear) Urine pH (4.5-7.5) Ur Specific [place] (1.000-1.030) Urine Protein (Negative) Urine Glucose (UA) (Negative) Urine Ketones (Negative) Urine Blood (Negative) Urine Nitrite (Negative) Urine Bilirubin (Negative) Urine Urobilinogen (Negative) Ur Leukocyte Esterase (Negative) Urine WBC (Auto) (0-5) /hpf Urine RBC (Auto) (0-4) /hpf U Hyaline Cast (Auto) (0-5) /lpf U Epithel Cells (Auto) (0-5) /lpf Urine Bacteria (Auto) (Negative) COVID-19 Eval Order Covid19 at [facility] SARS-CoV-2 (PCR) POSITIVE A* (Negative) Influ A Molecular Assay (Negative) Influ B Molecular Assay (Negative) 02/04/21 02/04/21 02/04/21 Range/Units 11:40 11:40 11:40 WBC (4.8-10.8) K/uL RBC (4.7-6.1) M/uL Hgb (14.0-18.0) g/dL Hct (42-52) % MCV (80-100) fL MCH (25-34) pg MCHC (32-36) g/dL RDW Std Deviation (36.4-46.3) fL RDW Coeff of [place] (11.5-14.5) % Plt Count (130-400) K/uL MPV (7.4-10.4) fL Immature Gran % (Auto) % Neut % (Auto) % Lymph % (Auto) % [place] % (Auto) % Eos % (Auto) % Baso % (Auto) % Neut # (Auto) (1.4-6.5) K/uL Lymph # (Auto) (1.2-3.4) K/uL [place] # (Auto) (0.11-0.59) K/uL Eos # (Auto) (0-0.5) K/uL Baso # (Auto) (0-0.2) K/uL Immature Gran # (Auto) (0.00-0.02) K/uL PT (9.0-12.0) Seconds INR (0.9-1.1) APTT (21.0-31.0) Seconds PTT Ratio ABG pH (7.35-7.45) ABG pCO2 (35-46) mmHg ABG pO2 (80-95) mmHg ABG HCO3 (19-24) mmol/L ABG O2 Saturation (90-95) % ABG Base Excess (-9-1.8) mEq/L Ori Test (Pos) Barometric Pressure mm/Hg Oxygen Given Sodium (136-145) mmol/L Potassium (3.5-5.1) mmol/L Chloride (98-107) mmol/L Carbon Dioxide (21-32) mmol/L Anion Gap (3-11) BUN (7-18) mg/dl Creatinine (0.6-1.4) mg/dl Est Cr Clr Drug Dosing ml/min Est GFR ( Amer) ml/min Est GFR (Non-Af Amer) ml/min BUN/Creatinine Ratio (10-20) Glucose (70-99) mg/dl Lactate (0.4-2.0) mmol/L Calcium (8.5-10.1) mg/dl Magnesium (1.8-2.4) mg/dl Total Bilirubin (0.2-1) mg/dl AST (15-37) U/L ALT (12-78) U/L Alkaline Phosphatase (45-117) U/L C-Reactive Protein 13.80 H (0-0.29) mg/dl NT-Pro-B Natriuret Pep 1307 H (0-900) pg/ml Total Protein (6.4-8.2) gm/dl Albumin (3.4-5.0) gm/dl Globulin (2.5-4.0) gm/dl Albumin/Globulin Ratio (0.9-2) Procalcitonin 0.22 (0-0.5) ng/ml Urine Color Urine Appearance (Clear) Urine pH (4.5-7.5) Ur Specific [place] (1.000-1.030) Urine Protein (Negative) Urine Glucose (UA) (Negative) Urine Ketones (Negative) Urine Blood (Negative) Urine Nitrite (Negative) Urine Bilirubin (Negative) Urine Urobilinogen (Negative) Ur Leukocyte Esterase (Negative) Urine WBC (Auto) (0-5) /hpf Urine RBC (Auto) (0-4) /hpf U Hyaline Cast (Auto) (0-5) /lpf U Epithel Cells (Auto) (0-5) /lpf Urine Bacteria (Auto) (Negative) COVID-19 Eval Order SARS-CoV-2 (PCR) (Negative) Influ A Molecular Assay (Negative) Influ B Molecular Assay (Negative) 02/04/21 02/04/21 02/04/21 Range/Units 11:48 12:11 14:40 WBC (4.8-10.8) K/uL RBC (4.7-6.1) M/uL Hgb (14.0-18.0) g/dL Hct (42-52) % MCV (80-100) fL MCH (25-34) pg MCHC (32-36) g/dL RDW Std Deviation (36.4-46.3) fL RDW Coeff of [place] (11.5-14.5) % Plt Count (130-400) K/uL MPV (7.4-10.4) fL Immature Gran % (Auto) % Neut % (Auto) % Lymph % (Auto) % [place] % (Auto) % Eos % (Auto) % Baso % (Auto) % Neut # (Auto) (1.4-6.5) K/uL Lymph # (Auto) (1.2-3.4) K/uL [place] # (Auto) (0.11-0.59) K/uL Eos # (Auto) (0-0.5) K/uL Baso # (Auto) (0-0.2) K/uL Immature Gran # (Auto) (0.00-0.02) K/uL PT (9.0-12.0) Seconds INR (0.9-1.1) APTT (21.0-31.0) Seconds PTT Ratio ABG pH 7.50 H (7.35-7.45) ABG pCO2 27 L (35-46) mmHg ABG pO2 59 L (80-95) mmHg ABG HCO3 20 (19-24) mmol/L ABG O2 Saturation 91.0 (90-95) % ABG Base Excess -1.6 (-9-1.8) mEq/L Ori Test Pos (Pos) Barometric Pressure 733.0 mm/Hg Oxygen Given BiPap Sodium (136-145) mmol/L Potassium (3.5-5.1) mmol/L Chloride (98-107) mmol/L Carbon Dioxide (21-32) mmol/L Anion Gap (3-11) BUN (7-18) mg/dl Creatinine (0.6-1.4) mg/dl Est Cr Clr Drug Dosing ml/min Est GFR ( Amer) ml/min Est GFR (Non-Af Amer) ml/min BUN/Creatinine Ratio (10-20) Glucose (70-99) mg/dl Lactate (0.4-2.0) mmol/L Calcium (8.5-10.1) mg/dl Magnesium (1.8-2.4) mg/dl Total Bilirubin (0.2-1) mg/dl AST (15-37) U/L ALT (12-78) U/L Alkaline Phosphatase (45-117) U/L C-Reactive Protein (0-0.29) mg/dl NT-Pro-B Natriuret Pep (0-900) pg/ml Total Protein (6.4-8.2) gm/dl Albumin (3.4-5.0) gm/dl Globulin (2.5-4.0) gm/dl Albumin/Globulin Ratio (0.9-2) Procalcitonin (0-0.5) ng/ml Urine Color Yellow Urine Appearance Clear (Clear) Urine pH 6.0 (4.5-7.5) Ur Specific [place] 1.018 (1.000-1.030) Urine Protein 1+ H (Negative) Urine Glucose (UA) Negative (Negative) Urine Ketones Negative (Negative) Urine Blood 1+ H (Negative) Urine Nitrite Negative (Negative) Urine Bilirubin Negative (Negative) Urine Urobilinogen Negative (Negative) Ur Leukocyte Esterase Negative (Negative) Urine WBC (Auto) 1-5 (0-5) /hpf Urine RBC (Auto) 0-4 (0-4) /hpf U Hyaline Cast (Auto) 0 (0-5) /lpf U Epithel Cells (Auto) 5-10 H (0-5) /lpf Urine Bacteria (Auto) Negative (Negative) COVID-19 Eval Order SARS-CoV-2 (PCR) (Negative) Influ A Molecular Assay Negative (Negative) Influ B Molecular Assay Negative (Negative) Imaging Data Radiologist's Impression: Chest CTA 02/04/21 11:25 CT angio chest PE protocol HISTORY: 70 years-old Male with hypoxia govind covid + ro GOVIND. Acute shortness of breath. COVID Positive. History of lymphoma. TECHNIQUE: Multiple CTA images of the chest were obtained after the intravenous administration of 122 ml Optiray. Coronal and sagittal MIPS were obtained from the axial data set and were submitted for review. All measurements were obtained according to NASCET criteria. A dose lowering technique was utilized adhering to the principles of ALARA. COMPARISON: Chest radiograph of same day, chest CT 09/25/2020 FINDINGS: Limited study secondary to upper extremity positioning. CTA: The heart is normal in size. Trace pericardial effusion. Mild coronary artery calcifications. Mild atherosclerosis of the thoracic aorta. There is patency of the imaged great vessels. Mild descending thoracic aortic tortuosity. The segmental and subsegmental pulmonary arterial branches are suboptimally evaluated secondary to respiratory motion artifact. No filling defects identified to suggest thromboembolic disease. CT CHEST: No thyroid nodule. 11 mm pretracheal lymph node on image 144 series 6 previously measured 7 mm. 1.4 cm subcarinal and right hilar adenopathy has also progressed from prior. Trace pleural effusions. No pneumothorax. Mild emphysema. Mild intralobular septal thickening with patchy multifocal bilateral groundglass opacities. No suspicious pulmonary nodules or masses are identified. The central airways are patent. Small hiatal hernia. No acute process of the imaged upper abdomen. Unremarkable soft tissues. No acute fracture. Degenerative changes of the shoulders and spine. Unchanged appearance of the left scapular body. IMPRESSION: 1. Multifocal bilateral groundglass opacities are compatible with viral pneumonia. 2. Mild associated intralobular septal thickening may represent a component of pulmonary edema. 3. Mild mediastinal and hilar adenopathy is new from 09/25/2020. This is likely reactive and less likely related to the patient's known lymphoma. Attention at follow-up recommended. 4. Trace pleural effusions. 5. Small hiatal hernia. ACT 112: Negative or not required by law. The above report was generated using voice recognition software. It may contain grammatical, syntax or spelling errors. Electronically signed by: Michael Peterson M.D. 02/04/2021 2:24 PM Chest X-Ray 02/04/21 11:26 SINGLE VIEW CHEST CLINICAL HISTORY: Sepsis. FINDINGS: An AP, portable, upright chest radiograph is compared to study dated 08/06/2018 and correlated with chest CT dated 09/25/2020. The examination is degraded by portable technique and patient rotation. The heart is mildly enlarged noting atherosclerotic calcification of the thoracic aorta. Emphysema and chronic interstitial thickening is similar to previous. Multifocal airspace consolidation is seen throughout both lungs, right greater than left. No large pleural effusion or pneumothorax is seen. The skeletal structures are osteopenic. The bony thorax is grossly intact. IMPRESSION: 1. Multifocal airspace consolidation is typical for pneumonia. Clinical correlation will be required and radiographic follow-up to resolution is rec ommended. 2. Cardiomegaly and emphysema. ACT 112: Negative or not required by law. Electronically signed by: Lester Tom M.D. 02/04/2021 12:[address] 02/04/21 11:26 CT SCAN OF THE BRAIN WITHOUT IV CONTRAST CLINICAL HISTORY: Change in mental status. COMPARISON STUDY: No priors. TECHNIQUE: Unenhanced axial CT scan of the brain is performed from the vertex to the skull base. A dose lowering technique was utilized adhering to the principles of ALARA. The examination is modestly degraded by motion artifact. CT DOSE: 1168.49 mGycm FINDINGS: Brain parenchyma: There are age-related involutional changes noting moderate to advanced subcortical and periventricular microangiopathic change. There is no hemorrhage, mass effect, or evidence of acute territorial ischemia by CT criteria. Shepherd-white matter differentiation is preserved. No extra-axial fluid collection is seen. Ventricles, sulci, cisterns: Prominent secondary to involutional change. Intracranial vasculature: There is atherosclerotic calcification of the cavernous carotid and vertebral arteries. Calvarium: Unremarkable. Sinuses and mastoids: The visualized paranasal sinuses are clear. There is a small right mastoid effusion. The left mastoid air cells are well pneumatized. Orbits: The bony orbits are grossly intact. IMPRESSION: There is no hemorrhage, mass effect, or evidence of acute territorial ischemia by CT criteria. ACT 112: Negative or not required by law. Electronically signed by: Lester Tom M.D. 02/04/2021 2:01 PM ECG Data Indication: + SOB/dyspnea Rate (beats per minute): 89 Rhythm: + normal sinus ECG Intervals/blocks: + Normal QRS, + Normal NM and + Normal QT-c ECG ST segments: + Normal ST segments MDM Narrative 1125: The patient was evaluated in room B2. A complete history and physical exam was performed Cardiac monitoring: An order was placed for continuous cardiac monitoring. The monitor shows a rate of 80 with sinus rhythm Patient was found to be 50 to 60% oxygen saturation on room air. Patient was placed on nonrebreather which did not improve his oxygen saturation much, it went up to 70%. Patient was started on high flow nasal cannula which also did not improve his oxygen saturation much. Patient was then switched to BiPAP which did improve his oxygen saturation to the low 90%. We will continue to monitor the patient. Patient remains tachypneic and if his oxygen saturations do not stay in the 88 to 92% range we will plan on intubating the patient. Decadron 6 mg IV push ordered for the patient as it is presumed that he has COVID-19 given his hypoxia, the fact that he is unvaccinated, and that his recently tested positive for COVID-19. 1230: Patient tolerating BiPAP well. Patient is oxygen saturation 92 to 96% on BiPAP. Patient's respiratory rate has improved. Patient does appear more alert. ABG shows a PCO2 of 27. 1330: Patient continues to tolerate BiPAP well. He is alert and oriented now. Spoke with the patient's Thalia [phone] she states that the patient does have a living will but she wants everything done for the patient including intubation if need be. Given this, we will plan on admitting the patient to the medicine service into the ICU. 1400: Patient continues to tolerate BiPAP well. Discussed with Dr. White [facility] hospitalist who agrees to admit the patient. He is asking that we consult ICU Dr. Menjivar. Dr. Menjivar agrees to be on consult. 1430: Patient Covid positive. CTA negative for PE does show bilateral groundglass opacities. CT of the head normal. Impression & Plan Hypoxia, Pneumonia due to 2019 novel coronavirus Discharge Plan Visit Data Chief Complaint: Illness Stated Complaint: FEVER, COUGH, ILLNESS, WEAKNESS Discharge Problem: Hypoxia, Pneumonia due to 2019 novel coronavirus Patient Disposition: Admitted As Inpatient Discharge Instructions Interventions: ED Discharge Assessment Last Done: 02/04/21 17:00
[2021-02-04] MEDS: UMECLIDINIUM/VILANTEROL 62.5/25MCG 7 PUFFS/INHALER INH SCH (20:39)
[2021-02-04] MEDS: TAMSULOSIN HCL 0.4 MG CAP PO SCH (20:40)
[2021-02-04] MEDS: ENOXAPARIN INJ 40 MG/0.4 ML SYR SQ SCH (20:41)
--- NOTE | 2021-02-04 22:40 | Electrocardiogram Report ---
Test Reason : Blood Pressure : / mmHG Vent. Rate : 089 BPM Atrial Rate : 089 BPM P-R Int : 116 ms QRS Dur : 080 ms QT Int : 362 ms P-R-T Axes : 023 038 016 degrees QTc Int : 440 ms Poor data quality, interpretation may be adversely affected Normal sinus rhythm Possible Anterior infarct , age undetermined Nonspecific T wave abnormality Abnormal ECG When compared with ECG of 24-MAY-2016 12:58, Vent. rate has increased BY 39 BPM Nonspecific T wave abnormality now evident in Inferior leads Nonspecific T wave abnormality now evident in Anterior leads Confirmed by Tyler Lemus ([id number]) on 02/04/2021 10:40:00 PM Referred By: REFERRED SELF Confirmed By:Tyler Lemus
[2021-02-05 05:06] LABS: Basophils # (auto) 0.03 K/uL (0-0.2); Basophils % (auto) 0.4 %; Hematocrit (blood only) 36.8 % (42-52); Hemoglobin 13.4 g/dL (14.0-18.0); Immature Granulocytes # (auto) 0.04 K/uL (0.00-0.02); Immature Granulocytes % (auto) 0.6 %; Lymphocytes # (auto) 0.92 K/uL (1.2-3.4); Mean Corpuscular Hemoglobin 32.9 pg (25-34); Mean Corpuscular Hgb Conc 36.4 g/dL (32-36); Mean Corpuscular Volume 90.4 fL (80-100); Mean Platelet Volume 10.1 fL (7.4-10.4); Monocytes # (auto) 0.48 K/uL (0.11-0.59); Monocytes % (auto) 6.8 %; Neutrophils # (auto) 5.62 K/uL (1.4-6.5); Neutrophils % (auto) 79.2 %; Platelet Count 246 K/uL (130-400); RDW Coefficient of Variation 13.3 % (11.5-14.5); Red Blood Count 4.07 M/uL (4.7-6.1); White Blood Count 7.09 K/uL (4.8-10.8)
[2021-02-05] MEDS: BUDESONIDE 0.5 MG/2 ML VIAL (PULMICORT) NEB SCH ×2 (05:30→20:07)
[2021-02-05 05:33] LABS: BUN Creatinine Ratio 15.4 (10-20); Calcium 8.3 mg/dl (8.5-10.1); Creatinine Clr Calc Pharmacy 44.7 ml/min; Est GFR (African American) 60.8 ml/min; Est GFR (Non-African American) 52.4 ml/min; Potassium 4.3 mmol/L (3.5-5.1)
[2021-02-05] MEDS ORDERED: NON-FORMULARY MEDICATION (Tiotropium-Olodaterol [Stiolto Respimat] 2.5-2.5 mcg/actuation m INH SCH (09:00)
[2021-02-05] MEDS: ASPIRIN 81 MG ECTAB PO SCH (09:15)
[2021-02-05] MEDS: ATORVASTATIN 20 MG TAB PO SCH (09:16)
[2021-02-05] MEDS: MULTIVITAMIN TAB PO SCH (09:16)
[2021-02-05] MEDS: 2 mg Once Daily x14 days PO SCH (09:16)
[2021-02-05] MEDS: dexAMETHasone 6 MG in SYRINGE 0 ML IV SCH (09:17)
[2021-02-05] MEDS: PANTOprazole 40 MG TAB PO SCH (09:17)
[2021-02-05] MEDS: ENOXAPARIN INJ 40 MG/0.4 ML SYR SQ SCH ×2 (09:18→19:58)
[2021-02-05] MEDS: UMECLIDINIUM/VILANTEROL 62.5/25MCG 7 PUFFS/INHALER INH SCH (09:20)
--- NOTE | 2021-02-05 09:49 | Hospitalist Progress Note ---
Date of Service February 05, 2021 Assessment & Plan (1) COVID: Plan: Unvaccinated. Unclear exact onset of symptoms, patient reports 2 weeks but 7 days reported by his . diagnosed on 01/25 Dexamethasone 6mg IV daily, day 2 Baricitinib 4mg daily, day 2 continue to try to wean oxygen, currently 60L and 90% FiO2 encouraged him to prone, won't consider flutter valve, incentive spirometer (2) Acute respiratory failure with hypoxia: Plan: Aim O2 sats > 90%. Currently on HFNC, 60L 90% has bernabe in place, give Lasix 20mg IV since he is eating/drinking well encouraged to lay on side or prone, not sure he will be compliant he told admitting physician that he does NOT want intubated if breathing gets worse currently he is comfortable (3) ARDS (adult respiratory distress syndrome): Plan: As above (4) Hyponatremia: Plan: due to volume overload, poor solute intake Na is 131 today (5) Pulmonary edema: Plan: As above for hyponatremia Lasix 20mg IV (6) Current smoker: Plan: Consider nicotine patch if needed Greater than [id number] smoking history (7) COPD with emphysema: Plan: Continue his routine inhalers (8) BPH w urinary obs/LUTS: Plan: Continue tamsulosin 0.4mg PO HS bernabe in place (9) Diffuse large B-cell lymphoma of intra-abdominal lymph nodes: Plan: Incidentally picked on renal cancer surveillance. Prior rituximab 11/2019. No current treatment. Asymptomatic form this per last oncology note. (10) PAD (peripheral artery disease): Plan: Continue aspirin, atorvastatin (11) Hypertension: Plan: Hold amlodipine in setting of relative hypotension with current infection and Lasix use as above. 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 Currently on surveillance only. Plan: VTE Prophylaxis - Lovenox 40mg SQ BID Diet - give him a regular diet Disposition - admit to PCU Admission and Anticipated Discharge Date Admission Date: February 04, 2021 Subjective patient is sitting up in bed, finished half of breakfast, said it was "terrible, but coffee was decent" told him he will be in the hospital for at least a week, he said "this sucks" discussed that he is on 60L and 90% oxygen, will try to wean back, not sure we can do it yet today told him to lay on his side or prone, he probably won't do it reviewed the chart, discussed with Dr. Menjivar, appreciate his input Review of Systems Review of Systems: All systems reviewed & are unremarkable except as noted in Subjective Respiratory: + cough and + dyspnea Physical Exam Physical Exam: General: well developed, well nourished, elderly male, ill appearing, no distress Neck: supple, trachea midline, normal thyroid Lungs: clear to auscultation bilaterally, diminished in bases, tachypnea, no accessory muscle use, no distress Heart: regular S1 and S2, no murmur, peripheral pulses normal, capillary refill normal, no edema Abdomen: soft, NT, ND, + BS, no hepatomegaly, normal to percussion Extremities: normal in appearance, no cyanosis, no petechiae, strength is 5/5 bilaterally Neuro: awake, cooperative, moves all extremities, no focal motor deficits, CN II-XII intact, sensation in extremities intact, normal speech Skin: warm, dry, no rash, normal turgor Psych: Awake, alert oriented x 3, euthymic affect Results & Data Results & Data ([facility]) Vital Signs (Past 12 Hours) Vital Signs Temp Pulse Pulse Resp BP Pulse Ox 02/05/21 07:51 36.4 C L 59 L 22 122/65 98 02/05/21 05:31 62 18 92 02/05/21 05:30 62 18 92 02/05/21 05:13 37.0 C 69 16 123/71 93 02/05/21 04:59 64 02/05/21 03:35 72 20 95 02/05/21 00:50 61 20 91 02/04/21 23:00 36.9 C 72 16 133/69 90 Laboratory Results Laboratory Results - last 24 hr 02/04/21 02/04/21 02/04/21 11:40 11:40 11:40 WBC 7.98 RBC 3.98 L Hgb 12.9 L Hct 35.8 L MCV 89.9 MCH 32.4 MCHC 36.0 RDW Std Deviation 43.6 RDW Coeff of [place] 13.2 Plt Count 241 MPV 10.1 Immature Gran % (Auto) 0.4 Neut % (Auto) 86.3 Lymph % (Auto) 9.5 [place] % (Auto) 3.5 Eos % (Auto) 0.0 Baso % (Auto) 0.3 Neut # (Auto) 6.89 H Lymph # (Auto) 0.76 L [place] # (Auto) 0.28 Eos # (Auto) 0.00 Baso # (Auto) 0.02 Immature Gran # (Auto) 0.03 H PT 9.9 INR 1.0 APTT 29.9 PTT Ratio 1.1 ABG pH ABG pCO2 ABG pO2 ABG HCO3 ABG O2 Saturation ABG Base Excess Ori Test Barometric Pressure Oxygen Given Sodium 126 L Potassium 4.2 Chloride 95 L Carbon Dioxide 24 Anion Gap 7.0 BUN 13 Creatinine 1.34 Est Cr Clr Drug Dosing 51.0 Est GFR ( Amer) 61.3 Est GFR (Non-Af Amer) 52.9 BUN/Creatinine Ratio 9.9 L Glucose 93 Lactate Calcium 7.7 L Magnesium 2.0 Total Bilirubin 0.7 AST 148 H ALT 69 Alkaline Phosphatase 105 C-Reactive Protein NT-Pro-B Natriuret Pep Total Protein 6.1 L Albumin 2.4 L Globulin 3.7 Albumin/Globulin Ratio 0.6 L Procalcitonin Urine Color Urine Appearance Urine pH Ur Specific [place] Urine Protein Urine Glucose (UA) Urine Ketones Urine Blood Urine Nitrite Urine Bilirubin Urine Urobilinogen Ur Leukocyte Esterase Urine WBC (Auto) Urine RBC (Auto) U Hyaline Cast (Auto) U Epithel Cells (Auto) Urine Bacteria (Auto) COVID-19 Eval Order SARS-CoV-2 (PCR) Influ A Molecular Assay Influ B Molecular Assay 02/04/21 02/04/21 02/04/21 11:40 11:40 11:40 WBC RBC Hgb Hct MCV MCH MCHC RDW Std Deviation RDW Coeff of [place] Plt Count MPV Immature Gran % (Auto) Neut % (Auto) Lymph % (Auto) [place] % (Auto) Eos % (Auto) Baso % (Auto) Neut # (Auto) Lymph # (Auto) [place] # (Auto) Eos # (Auto) Baso # (Auto) Immature Gran # (Auto) PT INR APTT PTT Ratio ABG pH ABG pCO2 ABG pO2 ABG HCO3 ABG O2 Saturation ABG Base Excess Ori Test Barometric Pressure Oxygen Given Sodium Potassium Chloride Carbon Dioxide Anion Gap BUN Creatinine Est Cr Clr Drug Dosing Est GFR ( Amer) Est GFR (Non-Af Amer) BUN/Creatinine Ratio Glucose Lactate 1.4 Calcium Magnesium Total Bilirubin AST ALT Alkaline Phosphatase C-Reactive Protein NT-Pro-B Natriuret Pep Total Protein Albumin Globulin Albumin/Globulin Ratio Procalcitonin Urine Color Urine Appearance Urine pH Ur Specific [place] Urine Protein Urine Glucose (UA) Urine Ketones Urine Blood Urine Nitrite Urine Bilirubin Urine Urobilinogen Ur Leukocyte Esterase Urine WBC (Auto) Urine RBC (Auto) U Hyaline Cast (Auto) U Epithel Cells (Auto) Urine Bacteria (Auto) COVID-19 Eval Order Covid19 at [facility] SARS-CoV-2 (PCR) POSITIVE A* Influ A Molecular Assay Influ B Molecular Assay 02/04/21 02/04/21 02/04/21 11:40 11:40 11:40 WBC RBC Hgb Hct MCV MCH MCHC RDW Std Deviation RDW Coeff of [place] Plt Count MPV Immature Gran % (Auto) Neut % (Auto) Lymph % (Auto) [place] % (Auto) Eos % (Auto) Baso % (Auto) Neut # (Auto) Lymph # (Auto) [place] # (Auto) Eos # (Auto) Baso # (Auto) Immature Gran # (Auto) PT INR APTT PTT Ratio ABG pH ABG pCO2 ABG pO2 ABG HCO3 ABG O2 Saturation ABG Base Excess Ori Test Barometric Pressure Oxygen Given Sodium Potassium Chloride Carbon Dioxide Anion Gap BUN Creatinine Est Cr Clr Drug Dosing Est GFR ( Amer) Est GFR (Non-Af Amer) BUN/Creatinine Ratio Glucose Lactate Calcium Magnesium Total Bilirubin AST ALT Alkaline Phosphatase C-Reactive Protein 13.80 H NT-Pro-B Natriuret Pep 1307 H Total Protein Albumin Globulin Albumin/Globulin Ratio Procalcitonin 0.22 Urine Color Urine Appearance Urine pH Ur Specific [place] Urine Protein Urine Glucose (UA) Urine Ketones Urine Blood Urine Nitrite Urine Bilirubin Urine Urobilinogen Ur Leukocyte Esterase Urine WBC (Auto) Urine RBC (Auto) U Hyaline Cast (Auto) U Epithel Cells (Auto) Urine Bacteria (Auto) COVID-19 Eval Order SARS-CoV-2 (PCR) Influ A Molecular Assay Influ B Molecular Assay 02/04/21 02/04/21 02/04/21 11:48 12:11 14:40 WBC RBC Hgb Hct MCV MCH MCHC RDW Std Deviation RDW Coeff of [place] Plt Count MPV Immature Gran % (Auto) Neut % (Auto) Lymph % (Auto) [place] % (Auto) Eos % (Auto) Baso % (Auto) Neut # (Auto) Lymph # (Auto) [place] # (Auto) Eos # (Auto) Baso # (Auto) Immature Gran # (Auto) PT INR APTT PTT Ratio ABG pH 7.50 H ABG pCO2 27 L ABG pO2 59 L ABG HCO3 20 ABG O2 Saturation 91.0 ABG Base Excess -1.6 Ori Test Pos Barometric Pressure 733.0 Oxygen Given BiPap Sodium Potassium Chloride Carbon Dioxide Anion Gap BUN Creatinine Est Cr Clr Drug Dosing Est GFR ( Amer) Est GFR (Non-Af Amer) BUN/Creatinine Ratio Glucose Lactate Calcium Magnesium Total Bilirubin AST ALT Alkaline Phosphatase C-Reactive Protein NT-Pro-B Natriuret Pep Total Protein Albumin Globulin Albumin/Globulin Ratio Procalcitonin Urine Color Yellow Urine Appearance Clear Urine pH 6.0 Ur Specific [place] 1.018 Urine Protein 1+ H Urine Glucose (UA) Negative Urine Ketones Negative Urine Blood 1+ H Urine Nitrite Negative Urine Bilirubin Negative Urine Urobilinogen Negative Ur Leukocyte Esterase Negative Urine WBC (Auto) 1-5 Urine RBC (Auto) 0-4 U Hyaline Cast (Auto) 0 U Epithel Cells (Auto) 5-10 H Urine Bacteria (Auto) Negative COVID-19 Eval Order SARS-CoV-2 (PCR) Influ A Molecular Assay Negative Influ B Molecular Assay Negative 02/05/21 02/05/21 04:46 04:46 WBC 7.09 RBC 4.07 L Hgb 13.4 L Hct 36.8 L MCV 90.4 MCH 32.9 MCHC 36.4 H RDW Std Deviation 44.0 RDW Coeff of [place] 13.3 Plt Count 246 MPV 10.1 Immature Gran % (Auto) 0.6 Neut % (Auto) 79.2 Lymph % (Auto) 13.0 [place] % (Auto) 6.8 Eos % (Auto) 0.0 Baso % (Auto) 0.4 Neut # (Auto) 5.62 Lymph # (Auto) 0.92 L [place] # (Auto) 0.48 Eos # (Auto) 0.00 Baso # (Auto) 0.03 Immature Gran # (Auto) 0.04 H PT INR APTT PTT Ratio ABG pH ABG pCO2 ABG pO2 ABG HCO3 ABG O2 Saturation ABG Base Excess Ori Test Barometric Pressure Oxygen Given Sodium 131 L Potassium 4.3 Chloride 98 Carbon Dioxide 26 Anion Gap 7.0 BUN 21 H D Creatinine 1.35 Est Cr Clr Drug Dosing 44.7 Est GFR ( Amer) 60.8 Est GFR (Non-Af Amer) 52.4 BUN/Creatinine Ratio 15.4 Glucose 125 H Lactate Calcium 8.3 L Magnesium Total Bilirubin AST ALT Alkaline Phosphatase C-Reactive Protein NT-Pro-B Natriuret Pep Total Protein Albumin Globulin Albumin/Globulin Ratio Procalcitonin Urine Color Urine Appearance Urine pH Ur Specific [place] Urine Protein Urine Glucose (UA) Urine Ketones Urine Blood Urine Nitrite Urine Bilirubin Urine Urobilinogen Ur Leukocyte Esterase Urine WBC (Auto) Urine RBC (Auto) U Hyaline Cast (Auto) U Epithel Cells (Auto) Urine Bacteria (Auto) COVID-19 Eval Order SARS-CoV-2 (PCR) Influ A Molecular Assay Influ B Molecular Assay Medications Administered Current Inpatient Medications Acetaminophen (Acetaminophen 325 Mg Tab) 650 mg PO Q4H PRN PRN Reason: Pain or Fever Stop: 03/06/21 19:13 Aspirin (Aspirin 81 Mg Ectab) 81 mg PO DAILY [facility] Stop: 03/07/21 08:59 Last Admin: 02/05/21 09:15 Dose: 81 mg Documented by: Atorvastatin Calcium (Atorvastatin 20 Mg Tab) 20 mg PO DAILY [facility] Stop: 03/07/21 08:59 Last Admin: 02/05/21 09:16 Dose: 20 mg Documented by: Baricitinib (2 Mg Once Daily X14 Days) 2 mg PO DAILY [facility]; Protocol Stop: 02/17/21 09:01 Last Admin: 02/05/21 09:16 Dose: 2 mg Documented by: Budesonide (Budesonide 0.5 Mg/2 Ml Vial (Pulmicort)) 0.5 mg NEB BIDR [facility] Stop: 03/06/21 18:59 Last Admin: 02/05/21 05:30 Dose: 0.5 mg Documented by: Enoxaparin Sodium (Enoxaparin Inj 40 Mg/0.4 Ml Syr) 40 mg SQ BID [facility] Stop: 03/06/21 20:59 Last Admin: 02/05/21 09:18 Dose: 40 mg Documented by: Dexamethasone 6 mg/ Syringe 1.5 mls @ 1 mls/min IV QAM [facility] Stop: 02/14/21 08:59 Last Admin: 02/05/21 09:17 Dose: 1 mls/min Documented by: Multivitamins (Multivitamin Tab) 1 tab PO DAILY [facility] Stop: 03/07/21 08:59 Last Admin: 02/05/21 09:16 Dose: 1 tab Documented by: Pantoprazole Sodium (Pantoprazole 40 Mg Tab) 40 mg PO DAILY [facility] Stop: 03/07/21 08:59 Last Admin: 02/05/21 09:17 Dose: 40 mg Documented by: Tamsulosin HCl (Tamsulosin Hcl 0.4 Mg Cap) 0.4 mg PO HS [facility] Stop: 03/06/21 20:59 Last Admin: 02/04/21 20:40 Dose: 0.4 mg Documented by: Umeclidinium/Vilanterol (Umeclidinium/Vilanterol 62.5/25mcg 7 Puffs/Inhaler) 1 puffs INH DAILY [facility] Stop: 03/06/21 16:14 Last Admin: 02/05/21 09:20 Dose: 1 puffs Documented by: PG Care Time/CCT Total # of Minutes Spent Total Time Spent with Patient: Total time spent is greater than 50% in coordination of care (as documented) at patient's floor/unit and/or counseling patient: Coding Level of Care Code 76714 Subseq Hosp Care Lvl 3 Diagnoses COVID U07.1 Acute respiratory failure with hypoxia J96.01 ARDS (adult respiratory distress syndrome) J80 Hyponatremia E87.1 Pulmonary edema J81.1 Current smoker F17.200 COPD with emphysema J43.9 BPH w urinary obs/LUTS N40.1; N13.8 Diffuse large B-cell lymphoma of intra-abdominal lymph nodes C83.33 PAD (peripheral artery disease) I73.9 Hypertension I10 Hyperlipidemia E78.5 Stafford esophagus K22.70 Chromophobe renal cell carcinoma C64.9
[2021-02-05] MEDS ORDERED: FUROSEMIDE 20 MG in SYRINGE 0 ML IV ONE (10:19)
[2021-02-05] MEDS ORDERED: FUROSEMIDE 40 MG/4 ML VIAL IV SCH (10:30)
--- NOTE | 2021-02-05 10:30 | Pulmonology Progress Note ---
Date of Service February 05, 2021 Assessment & Plan (1) COVID: (2) ARDS (adult respiratory distress syndrome): (3) COPD with emphysema: Plan: Impression: 70-year-old male with history of renal cell cancer, diffuse large B- cell lymphoma, and lung cancer currently in remission now with Covid pneumonia and ARDS physiology. He is DNR/DNI Recommendations: 1. Covid: Continue dexamethasone 6 mg daily. Continue baricitinib. DVT prophalaxis per ACCP guidelines 2. BNP was mildly elevated. Given low-dose of Lasix this morning. 3. Continue to follow for signs of secondary infection. 4. COPD: Continue Anoro and as needed rescue albuterol/DuoNeb's. Will place on nebulized budesonide. 5. Wean oxygen as tolerated. Try and defend pulse oximetry reading of 88%. Can use BiPAP as needed. The patient again reiterates his desire to not be intubated which I think is reasonable. 6. Await palliative care consultation At this point time, I do not think I have much else to offer the patient. Please contact us if we can be of additional assistance. Will sign off for now Admission and Anticipated Discharge Date Admission Date: February 04, 2021 Subjective Patient seen and examined. He reports that he is doing better. He is ding sitioned off of BiPAP to high flow oxygen. He is not coughing or wheezing. States he feels his breathing is okay currently Review of Systems Review of Systems: Negative except as noted above Physical Exam Neck: trachea midline, no thyromegaly Respiratory: + respiratory distress, + labored breathing and + tachypneic Auscultation: + crackles Cardiovascular: RRR, no murmur, no edema Gastrointestinal (Abdomen): normal bowel sounds, soft, nontender, no hepatosplenomegaly Musculoskeletal: Extremities: extremities normal to inspection Skin: no rashes, warm and dry Lymphatic: no cervical lymphadenopathy Results & Data Results & Data ([facility]) Vital Signs (Past 12 Hours) Vital Signs Temp Pulse Pulse Resp BP Pulse Ox 02/05/21 07:51 36.4 C L 59 L 22 122/65 98 02/05/21 05:31 62 18 92 02/05/21 05:30 62 18 92 02/05/21 05:13 37.0 C 69 16 123/71 93 02/05/21 04:59 64 02/05/21 03:35 72 20 95 02/05/21 00:50 61 20 91 02/04/21 23:00 36.9 C 72 16 133/69 90 Laboratory Results 02/05/21 04:46 02/05/21 04:46 Diagnostic Findings No new imaging PG Care Time/CCT Total # of Minutes Spent Total Time Spent with Patient: Total time spent is greater than 50% in co ordination of care (as documented) at patient's floor/unit and/or counseling patient: Coding Level of Care Code 13719 Subseq Hosp Care Lvl 2 Diagnoses COVID U07.1 ARDS (adult respiratory distress syndrome) J80 COPD with emphysema J43.9
[2021-02-05] MEDS: TAMSULOSIN HCL 0.4 MG CAP PO SCH (19:59)
[2021-02-06] MEDS: BUDESONIDE 0.5 MG/2 ML VIAL (PULMICORT) NEB SCH ×2 (05:31→18:03)
[2021-02-06 06:05] LABS: Hematocrit (blood only) 36.2 % (42-52); Mean Corpuscular Hemoglobin 32.6 pg (25-34); Mean Corpuscular Hgb Conc 35.9 g/dL (32-36); Mean Corpuscular Volume 90.7 fL (80-100); Mean Platelet Volume 10.4 fL (7.4-10.4); Platelet Count 291 K/uL (130-400); RDW Coefficient of Variation 13.4 % (11.5-14.5); RDW Standard Deviation 44.3 fL (36.4-46.3); Red Blood Count 3.99 M/uL (4.7-6.1); White Blood Count 10.36 K/uL (4.8-10.8)
[2021-02-06 06:40] LABS: BUN Creatinine Ratio 22.6 (10-20); Calcium 8.3 mg/dl (8.5-10.1); Creatinine Clr Calc Pharmacy 51.4 ml/min; Est GFR (African American) 70.8 ml/min; Est GFR (Non-African American) 61.1 ml/min; Potassium 4.2 mmol/L (3.5-5.1)
[2021-02-06 06:41] LABS: C Reactive Protein 7.62 mg/dl (0-0.29)
[2021-02-06] MEDS ORDERED: FUROSEMIDE 20 MG in SYRINGE 0 ML IV SCH (09:00)
[2021-02-06] MEDS: ASPIRIN 81 MG ECTAB PO SCH (09:07)
[2021-02-06] MEDS: ATORVASTATIN 20 MG TAB PO SCH (09:07)
[2021-02-06] MEDS: ENOXAPARIN INJ 40 MG/0.4 ML SYR SQ SCH ×2 (09:08→19:58)
[2021-02-06] MEDS: PANTOprazole 40 MG TAB PO SCH (09:08)
[2021-02-06] MEDS: UMECLIDINIUM/VILANTEROL 62.5/25MCG 7 PUFFS/INHALER INH SCH (09:08)
[2021-02-06] MEDS: dexAMETHasone 6 MG in SYRINGE 0 ML IV SCH (09:08)
[2021-02-06] MEDS: 2 mg Once Daily x14 days PO SCH (09:08)
[2021-02-06] MEDS: MULTIVITAMIN TAB PO SCH (09:08)
[2021-02-06] MEDS: FUROSEMIDE 40 MG/4 ML VIAL IV SCH (09:14)
--- NOTE | 2021-02-06 09:29 | Hospitalist Progress Note ---
Date of Service February 06, 2021 Assessment & Plan (1) COVID: Plan: Unvaccinated. Unclear exact onset of symptoms, patient reports 2 weeks but 7 days reported by his . diagnosed on 01/25 Dexamethasone 6mg IV daily, day 3 Baricitinib 2mg daily, day 3 continue to try to wean oxygen, currently 55L and 75% FiO2 encouraged him to prone, won't consider flutter valve, incentive spirometer will be placed at bedside, encouraged him to use Lasix 20mg IV daily, bernabe (2) Acute respiratory failure with hypoxia: Plan: Aim O2 sats > 90%. Currently on HFNC, 55L 75% which is improvement has bernabe in place, Lasix 20mg IV qAM, good response encouraged to lay on side or prone, not sure he will be compliant he told admitting physician that he does NOT want intubated if breathing gets worse currently he is comfortable (3) ARDS (adult respiratory distress syndrome): Plan: As above dexamethasone, Lasix (4) Hyponatremia: Plan: due to volume overload, poor solute intake Na is 131 again today (5) Pulmonary edema: Plan: As above for hyponatremia Lasix 20mg IV qAM, good response (6) Current smoker: Plan: not asking for nicotine patch (7) COPD with emphysema: Plan: Continue his routine inhalers (8) BPH w urinary obs/LUTS: Plan: Continue tamsulosin 0.4mg PO HS bernabe in place (9) Diffuse large B-cell lymphoma of intra-abdominal lymph nodes: Plan: Incidentally picked on renal cancer surveillance. Prior rituximab 11/2019. No current treatment. Asymptomatic form this per last oncology note. (10) PAD (peripheral artery disease): Plan: Continue aspirin, atorvastatin (11) Hypertension: Plan: Hold amlodipine in setting of relative hypotension with current infection and Lasix use as above. 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 Currently on surveillance only. Plan: VTE Prophylaxis - Lovenox 40mg SQ BID Diet - give him a regular diet Disposition - admit to PCU Admission and Anticipated Discharge Date Admission Date: February 04, 2021 Subjective reviewed labs, Cr and K are stable, CBC stable responding well to Lasix, will schedule it 20mg IV daily appetite is good updated his on the phone he says he is feeling a little better, wishes he could go home, but understands he is too ill no diarrhea, no fever, no chills, + weakness and fatigue, no chest pain Review of Systems Review of Systems: All systems reviewed & are unremarkable except as noted in Subjective Respiratory: + cough, + dyspnea and + dyspnea on exertion; no sputum production Cardiovascular: no chest pain and no edema Gastrointestinal: no abdominal pain, no nausea, no vomiting, no constipation and no diarrhea/loose stools Physical Exam Physical Exam: General: well developed, well nourished, elderly male, ill appearing, no distress Neck: supple, trachea midline, normal thyroid Lungs: clear to auscultation bilaterally, diminished in bases, tachypnea, no accessory muscle use, no distress Heart: regular S1 and S2, no murmur, peripheral pulses normal, capillary refill normal, no edema Abdomen: soft, NT, ND, + BS, no hepatomegaly, normal to percussion Extremities: normal in appearance, no cyanosis, no petechiae, strength is 5/5 bilaterally Neuro: awake, cooperative, moves all extremities, no focal motor deficits, CN II-XII intact, sensation in extremities intact, normal speech Skin: warm, dry, no rash, normal turgor Psych: Awake, alert oriented x 3, euthymic affect Results & Data Results & Data ([facility]) Vital Signs (Past 12 Hours) Vital Signs Temp Pulse Pulse Resp BP Pulse Ox 02/06/21 08:12 36.6 C 57 L 18 145/73 H 98 02/06/21 05:31 54 L 18 92 02/06/21 03:14 62 20 93 02/06/21 02:51 36.7 C 64 16 131/72 93 02/05/21 23:19 36.5 C 66 16 127/70 98 02/05/21 23:15 55 L 02/05/21 23:04 53 L 19 97 Laboratory Results Laboratory Results - last 24 hr 02/06/21 02/06/21 05:21 05:21 WBC 10.36 RBC 3.99 L Hgb 13.0 L Hct 36.2 L MCV 90.7 MCH 32.6 MCHC 35.9 RDW Std Deviation 44.3 RDW Coeff of [place] 13.4 Plt Count 291 MPV 10.4 Sodium 131 L Potassium 4.2 Chloride 98 Carbon Dioxide 27 Anion Gap 6.0 BUN 27 H Creatinine 1.19 Est Cr Clr Drug Dosing 51.4 Est GFR ( Amer) 70.8 Est GFR (Non-Af Amer) 61.1 BUN/Creatinine Ratio 22.6 H Glucose 124 H Calcium 8.3 L C-Reactive Protein 7.62 H Medications Administered Current Inpatient Medications Acetaminophen (Acetaminophen 325 Mg Tab) 650 mg PO Q4H PRN PRN Reason: Pain or Fever Stop: 03/06/21 19:13 Aspirin (Aspirin 81 Mg Ectab) 81 mg PO DAILY [facility] Stop: 03/07/21 08:59 Last Admin: 02/06/21 09:07 Dose: 81 mg Documented by: Atorvastatin Calcium (Atorvastatin 20 Mg Tab) 20 mg PO DAILY [facility] Stop: 03/07/21 08:59 Last Admin: 02/06/21 09:07 Dose: 20 mg Documented by: Baricitinib (2 Mg Once Daily X14 Days) 2 mg PO DAILY [facility]; Protocol Stop: 02/17/21 09:01 Last Admin: 02/06/21 09:08 Dose: 2 mg Documented by: Budesonide (Budesonide 0.5 Mg/2 Ml Vial (Pulmicort)) 0.5 mg NEB BIDR [facility] Stop: 03/06/21 18:59 Last Admin: 02/06/21 05:31 Dose: 0.5 mg Documented by: Enoxaparin Sodium (Enoxaparin Inj 40 Mg/0.4 Ml Syr) 40 mg SQ BID [facility] Stop: 03/06/21 20:59 Last Admin: 02/06/21 09:08 Dose: 40 mg Documented by: Furosemide (Furosemide 40 Mg/4 Ml Vial) 20 mg IV DAILY [facility] Stop: 03/08/21 08:59 Last Admin: 02/06/21 09:14 Dose: 20 mg Documented by: Dexamethasone 6 mg/ Syringe 1.5 mls @ 1 mls/min IV QAM [facility] Stop: 02/14/21 08:59 Last Admin: 02/06/21 09:08 Dose: 1 mls/min Documented by: Multivitamins (Multivitamin Tab) 1 tab PO DAILY [facility] Stop: 03/07/21 08:59 Last Admin: 02/06/21 09:08 Dose: 1 tab Documented by: Pantoprazole Sodium (Pantoprazole 40 Mg Tab) 40 mg PO DAILY [facility] Stop: 03/07/21 08:59 Last Admin: 02/06/21 09:08 Dose: 40 mg Documented by: Tamsulosin HCl (Tamsulosin Hcl 0.4 Mg Cap) 0.4 mg PO HS [facility] Stop: 03/06/21 20:59 Last Admin: 02/05/21 19:59 Dose: 0.4 mg Documented by: Umeclidinium/Vilanterol (Umeclidinium/Vilanterol 62.5/25mcg 7 Puffs/Inhaler) 1 puffs INH DAILY [facility] Stop: 03/06/21 16:14 Last Admin: 02/06/21 09:08 Dose: 1 puffs Documented by: PG Care Time/CCT Total # of Minutes Spent Total Time Spent with Patient: Total time spent is greater than 50% in coordination of care (as documented) at patient's floor/unit and/or counseling patient: Coding Level of Care Code 30622 Subseq Hosp Care Lvl 3 Diagnoses COVID U07.1 Acute respiratory failure with hypoxia J96.01 ARDS (adult respiratory distress syndrome) J80 Hyponatremia E87.1 Pulmonary edema J81.1 Current smoker F17.200 COPD with emphysema J43.9 BPH w urinary obs/LUTS N40.1; N13.8 Diffuse large B-cell lymphoma of intra-abdominal lymph nodes C83.33 PAD (peripheral artery disease) I73.9 Hypertension I10 Hyperlipidemia E78.5 Stafford esophagus K22.70 Chromophobe renal cell carcinoma C64.9
[2021-02-06] MEDS: TAMSULOSIN HCL 0.4 MG CAP PO SCH (19:58)
[2021-02-07] MEDS: BUDESONIDE 0.5 MG/2 ML VIAL (PULMICORT) NEB SCH ×2 (06:13→22:08)
[2021-02-07] MEDS: ATORVASTATIN 20 MG TAB PO SCH (08:35)
[2021-02-07] MEDS: ASPIRIN 81 MG ECTAB PO SCH (08:35)
[2021-02-07] MEDS: UMECLIDINIUM/VILANTEROL 62.5/25MCG 7 PUFFS/INHALER INH SCH (08:35)
[2021-02-07] MEDS: dexAMETHasone 6 MG in SYRINGE 0 ML IV SCH (08:36)
[2021-02-07] MEDS: 4 mg Once Daily x14 days PO SCH (08:36)
[2021-02-07] MEDS: ENOXAPARIN INJ 40 MG/0.4 ML SYR SQ SCH ×2 (08:36→20:06)
[2021-02-07] MEDS: MULTIVITAMIN TAB PO SCH (08:36)
[2021-02-07] MEDS: PANTOprazole 40 MG TAB PO SCH (08:36)
[2021-02-07] MEDS: FUROSEMIDE 40 MG/4 ML VIAL IV SCH (08:55)
--- NOTE | 2021-02-07 09:04 | Hospitalist Progress Note ---
Date of Service February 07, 2021 Assessment & Plan (1) COVID: Plan: Unvaccinated. Unclear exact onset of symptoms, patient reports 2 weeks but 7 days reported by his . diagnosed on 01/25 Dexamethasone 6mg IV daily, day 4 Baricitinib 4mg daily, day 4 continue to try to wean oxygen, currently 50L and 90% FiO2 which is worse encouraged him to prone, won't consider flutter valve, incentive spirometer will be placed at bedside, encouraged him to use Lasix 20mg IV daily, bernabe (2) Acute respiratory failure with hypoxia: Plan: Aim O2 sats > 90%. Currently on HFNC, 50L 90% has bernabe in place, Lasix 20mg IV qAM, good response encouraged to lay on side or prone, not sure he will be compliant 02/07: spoke to patient about intubation, ventilation, even if for 5-7 days to see if he can pull through he refuses intubation, understands he may get worse (3) ARDS (adult respiratory distress syndrome): Plan: As above dexamethasone, Lasix worsening saturation/FiO2 ratio today, up to 90% needed (4) Hyponatremia: Plan: due to volume overload, poor solute intake Na is 131 on 02/06 (5) Pulmonary edema: Plan: As above for hyponatremia Lasix 20mg IV qAM, good response (6) Current smoker: Plan: not asking for nicotine patch (7) COPD with emphysema: Plan: Continue his routine inhalers (8) BPH w urinary obs/LUTS: Plan: Continue tamsulosin 0.4mg PO HS bernabe in place (9) Diffuse large B-cell lymphoma of intra-abdominal lymph nodes: Plan: Incidentally picked on renal cancer surveillance. Prior rituximab 11/2019. No current treatment. Asymptomatic form this per last oncology note. (10) PAD (peripheral artery disease): Plan: Continue aspirin, atorvastatin (11) Hypertension: Plan: Hold amlodipine in setting of relative hypotension with current infection and Lasix use as above. 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 Currently on surveillance only. Plan: VTE Prophylaxis - Lovenox 40mg SQ BID Diet - give him a regular diet Disposition - admit to PCU Admission and Anticipated Discharge Date Admission Date: February 04, 2021 Subjective patient is more lethargic this morning, staring off at the ceiling, answers are a bit delayed he answers appropriately, says he is in [facility], says "they tell me I have COVID" waiting on breakfast, not that hungry, denies abdominal pain, nausea says "my breathing is good" but he is up to 90% FiO2, laying flat on his back, won't lay on his side or prone discussed possibility of getting worse, needing intubation and ventilation to stay alive he says he does not want intubated, even for 5-7 days to see if he can recover discussed with RN, will check on him again later this morning Review of Systems Review of Systems: All systems reviewed & are unremarkable except as noted in Subjective Constitutional: + fatigue and + weakness; no fever Respiratory: + cough and + dyspnea Cardiovascular: no chest pain Gastrointestinal: no abdominal pain, no nausea, no vomiting, no constipation and no diarrhea/loose stools Physical Exam Physical Exam: General: well developed, well nourished, elderly male, ill appearing, no distress Neck: supple, trachea midline, normal thyroid Lungs: clear to auscultation bilaterally, diminished in bases, tachypnea, belly breathing, no distress Heart: tachycardic, S1 and S2, no murmur, peripheral pulses normal, capillary refill normal, no edema Abdomen: soft, NT, ND, + BS, no hepatomegaly, normal to percussion Extremities: normal in appearance, no cyanosis, no petechiae, strength is diminished in general, very weak Neuro: awake, cooperative, moves all extremities, no focal motor deficits, CN II-XII intact, sensation in extremities intact, normal speech Skin: warm, dry, no rash, normal turgor Psych: lethargic but wakes appropriately, oriented to person, place and situation, flat affect Results & Data Results & Data ([facility]) Vital Signs (Past 12 Hours) Vital Signs Temp Pulse Pulse Resp BP BP Pulse Ox 02/07/21 08:30 36.9 C 89 22 115/69 90 02/07/21 06:15 83 18 93 02/07/21 04:01 73 02/07/21 03:45 83 18 92 02/07/21 02:41 37 C 60 16 128/75 94 02/06/21 23:20 36.7 C 67 20 126/59 L 89 L 02/06/21 22:17 72 18 90 Medications Administered Current Inpatient Medications Acetaminophen (Acetaminophen 325 Mg Tab) 650 mg PO Q4H PRN PRN Reason: Pain or Fever Stop: 03/06/21 19:13 Aspirin (Aspirin 81 Mg Ectab) 81 mg PO DAILY [facility] Stop: 03/07/21 08:59 Last Admin: 02/07/21 08:35 Dose: 81 mg Documented by: Atorvastatin Calcium (Atorvastatin 20 Mg Tab) 20 mg PO DAILY [facility] Stop: 03/07/21 08:59 Last Admin: 02/07/21 08:35 Dose: 20 mg Documented by: Baricitinib (4 Mg Once Daily X14 Days) 4 mg PO DAILY [facility]; Protocol Stop: 02/17/21 09:01 Last Admin: 02/07/21 08:36 Dose: 4 mg Documented by: Budesonide (Budesonide 0.5 Mg/2 Ml Vial (Pulmicort)) 0.5 mg NEB BIDR [facility] Stop: 03/06/21 18:59 Last Admin: 02/07/21 06:13 Dose: 0.5 mg Documented by: Enoxaparin Sodium (Enoxaparin Inj 40 Mg/0.4 Ml Syr) 40 mg SQ BID [facility] Stop: 03/06/21 20:59 Last Admin: 02/07/21 08:36 Dose: 40 mg Documented by: Furosemide (Furosemide 40 Mg/4 Ml Vial) 20 mg IV DAILY [facility] Stop: 03/08/21 08:59 Last Admin: 02/07/21 08:55 Dose: 20 mg Documented by: Dexamethasone 6 mg/ Syringe 1.5 mls @ 1 mls/min IV QAM [facility] Stop: 02/14/21 08:59 Last Admin: 02/07/21 08:36 Dose: 1 mls/min Documented by: Multivitamins (Multivitamin Tab) 1 tab PO DAILY [facility] Stop: 03/07/21 08:59 Last Admin: 02/07/21 08:36 Dose: 1 tab Documented by: Pantoprazole Sodium (Pantoprazole 40 Mg Tab) 40 mg PO DAILY [facility] Stop: 03/07/21 08:59 Last Admin: 02/07/21 08:36 Dose: 40 mg Documented by: Tamsulosin HCl (Tamsulosin Hcl 0.4 Mg Cap) 0.4 mg PO HS [facility] Stop: 03/06/21 20:59 Last Admin: 02/06/21 19:58 Dose: 0.4 mg Documented by: Umeclidinium/Vilanterol (Umeclidinium/Vilanterol 62.5/25mcg 7 Puffs/Inhaler) 1 puffs INH DAILY [facility] Stop: 03/06/21 16:14 Last Admin: 02/07/21 08:35 Dose: 1 puffs Documented by: PG Care Time/CCT Total # of Minutes Spent Total Time Spent with Patient: Total time spent is greater than 50% in coordination of care (as documented) at patient's floor/unit and/or counseling patient: Coding Level of Care Code 43220 Subseq Hosp Care Lvl 3 Diagnoses COVID U07.1 Acute respiratory failure with hypoxia J96.01 ARDS (adult respiratory distress syndrome) J80 Hyponatremia E87.1 Pulmonary edema J81.1 Current smoker F17.200 COPD with emphysema J43.9 BPH w urinary obs/LUTS N40.1; N13.8 Diffuse large B-cell lymphoma of intra-abdominal lymph nodes C83.33 PAD (peripheral artery disease) I73.9 Hypertension I10 Hyperlipidemia E78.5 Stafford esophagus K22.70 Chromophobe renal cell carcinoma C64.9
[2021-02-07] MEDS: TAMSULOSIN HCL 0.4 MG CAP PO SCH (20:06)
[2021-02-08] MEDS: LORazepam 0.5 MG/1 ML VIAL IV PRN ×3 (01:57→23:44)
[2021-02-08] MEDS ORDERED: MoRPHine SULFATE 2 MG/ML CARP IV STA (05:00)
[2021-02-08 05:58] LABS: Base Excess ABG 0.6 mEq/L (-9-1.8); HCO3 ABG 24 mmol/L (19-24); Oxygen Saturation ABG 98.2 % (90-95); PCO2 ABG 33 mmHg (35-46); PO2 ABG 106 mmHg (80-95); pH ABG 7.47 (7.35-7.45)
[2021-02-08 06:19] LABS: Allen Test POS (Pos)
[2021-02-08] MEDS: BUDESONIDE 0.5 MG/2 ML VIAL (PULMICORT) NEB SCH ×2 (07:57→18:10)
[2021-02-08] MEDS: ENOXAPARIN INJ 40 MG/0.4 ML SYR SQ SCH ×2 (08:19→20:40)
[2021-02-08] MEDS: UMECLIDINIUM/VILANTEROL 62.5/25MCG 7 PUFFS/INHALER INH SCH (08:20)
[2021-02-08] MEDS: dexAMETHasone 6 MG in SYRINGE 0 ML IV SCH (08:20)
--- NOTE | 2021-02-08 08:20 | Hospitalist Progress Note ---
Date of Service February 08, 2021 Assessment & Plan (1) COVID: Plan: Unvaccinated. Unclear exact onset of symptoms, patient reports 2 weeks but 7 days reported by his . diagnosed on 01/25 covid pneumonia seen Dexamethasone 6mg IV daily, started 02/05/21 Baricitinib 4mg daily, last dose 02/21 currently 60L and 100% FiO2 which is worse encouraged him to prone flutter valve, incentive spirometer will be placed at bedside, encouraged him to use Lasix 20mg IV daily, bernabe (2) Acute respiratory failure with hypoxia: Plan: Aim O2 sats > 90%. Currently on HFNC has bernabe in place, Lasix 20mg IV qAM, good response encouraged to lay on side or prone, not sure he will be compliant 02/07:refuses intubation, understands he may get worse, palliative care did make DNR/DNI (3) ARDS (adult respiratory distress syndrome): Plan: As above dexamethasone, Lasix worsening saturation/FiO2 ratio today, up to 90% needed (4) Hyponatremia: Plan: due to volume overload, poor solute intake Na is 131 on 02/06 (5) Pulmonary edema: Plan: As above for hyponatremia Lasix 20mg IV qAM, good response (6) Current smoker: Plan: not asking for nicotine patch (7) COPD with emphysema: Plan: Continue his routine inhalers (8) BPH w urinary obs/LUTS: Plan: Continue tamsulosin 0.4mg PO HS bernabe in place (9) Diffuse large B-cell lymphoma of intra-abdominal lymph nodes: Plan: Incidentally picked on renal cancer surveillance. Prior rituximab 11/2019. No current treatment. Asymptomatic form this per last oncology note. (10) PAD (peripheral artery disease): Plan: Continue aspirin, atorvastatin (11) Hypertension: Plan: Hold amlodipine in setting of relative hypotension with current infection and Lasix use as above. 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 Currently on surveillance only. Plan: VTE Prophylaxis - Lovenox 40mg SQ BID Diet - give him a regular diet Disposition - family is considering progression to comfort measures Admission and Anticipated Discharge Date Admission Date: February 04, 2021 Subjective pt was extremely restless this am did require additional medicine to help keep people calm, when i did visit he was medicated but calm and with his calmness did have improved oxygen saturations Review of Systems Review of Systems: Unobtainable due to cognitive status Physical Exam Physical Exam: The patient appeared well nourished and normally developed. Vital signs as documented. Head exam is normocephalic atraumatic Neck is without JVD, thyromegaly, or carotid bruits. Lungs are clear to auscultation, no focal loss of breath sounds Cardiac exam, Rhythm is regular.. No murmurs, rubs or gallops. Abdominal exam reveals normal bowel sounds, soft non tender, no masses Extremities are nonedematous and both pedal pulses are present Neurologic exam is alert and oriented, no focal loss of strength or sensation Skin is without bruises or rashes Psychologically is without concerns for anxiety or depression Results & Data Results & Data ([facility]) Vital Signs (Past 12 Hours) Vital Signs Temp Pulse Resp BP Pulse Ox 02/08/21 07:57 74 24 97 02/08/21 07:13 99.3 F 88 28 H 120/70 92 02/08/21 05:56 88 22 90 02/08/21 03:05 98.2 F 76 24 158/76 H 95 02/08/21 02:13 115 H 28 H 87 L 02/07/21 22:53 98.1 F 78 23 154/74 H 91 02/07/21 21:47 70 18 94 PG Care Time/CCT Total # of Minutes Spent Total Time Spent with Patient: Total time spent is greater than 50% in coordination of care (as documented) at patient's floor/unit and/or counseling patient: Coding Level of Care Code 85001 Subseq Hosp Care Lvl 2 Diagnoses COVID U07.1 Acute respiratory failure with hypoxia J96.01 ARDS (adult respiratory distress syndrome) J80 Hyponatremia E87.1 Pulmonary edema J81.1 Current smoker F17.200 COPD with emphysema J43.9 BPH w urinary obs/LUTS N40.1; N13.8 Diffuse large B-cell lymphoma of intra-abdominal lymph nodes C83.33 PAD (peripheral artery disease) I73.9 Hypertension I10 Hyperlipidemia E78.5 Stafford esophagus K22.70 Chromophobe renal cell carcinoma C64.9
[2021-02-08] MEDS ORDERED: HALOPERIDOL LACTATE 5 MG/ML 1 ML VIAL IV STA (10:58)
[2021-02-08] MEDS: FUROSEMIDE 40 MG/4 ML VIAL IV SCH (11:10)
[2021-02-08] MEDS: ATORVASTATIN 20 MG TAB PO SCH (11:10)
[2021-02-08] MEDS: 4 mg Once Daily x14 days PO SCH (11:10)
[2021-02-08] MEDS: MULTIVITAMIN TAB PO SCH (11:10)
[2021-02-08] MEDS: PANTOprazole 40 MG TAB PO SCH (11:10)
[2021-02-08] MEDS: ASPIRIN 81 MG ECTAB PO SCH (11:11)
--- NOTE | 2021-02-08 12:38 | Palliative Care Consultation ---
Date of Consultation February 08, 2021 Assessment & Plan (1) Palliative care encounter: This is a 70 year old male who presented to the [facility] with increased shortness of breath and fatigue that has been occurring over the past 10 days prior to admission.He has been confirmed to have COVID-19 PNA and was unvaccinated. He has an extensive PMH that includes: Chromophobe renal cell carcinoma s/p nephrectomy, HTN, HLD, Barrest Esophagus, Large B-cell lymphoma, BPH s/p LUTS and a persistent smoker. He was diagnosed with COVID-19 PNA and was placed on Hi-flow O2. Palliative Medicine was consulted to discuss overall goals of care. I met Mr. Alonso in room 221. He was laying on his left side, but just minutes prior, the patient was experiencing behavioral disturbances with thrashing of his body from supine to prone. He has not been able to communicate or have a meaningful interaction. He currently has a 1:1 for safety. I did call the patients , Thalia and left a non-descriptive VM at [phone], but then was able to reach her when I called back later on in the afternoon. She was very tearful during the call, but was able to confirm that he would not want intubation in the event of further respiratory decline. We discussed that we are holding his routine oral medications due to the inability for him to swallow safely. We discussed his delirium and the medications that are being used to keep him safe. She does recognize that he is nearing the maximum respiratory intervention and efforts, short of intubation that is available to him. We discussed comfort measures and she does realize that it is unlikely he will have a meaningful recover, with his previous medical history as well. I did talk with nursing slate splitting supervisor regarding having him moved to an open room [id number] in order for family to have opportunity for window visitation as his indicated that is what is most important to her at this time if she were to transition him to comfort focused approach to his care. Palliative will follow tomorrow and continue to assist with a transition to comfort measures if no signs of improvement. (2) Hypoxia: Pt was initially on BiPAP in the ER; however, patient pulled that off. Pt has been on Hi-Flow O2, currently 60L at 90%. Patient has indicated the he would not want mechanical ventilation, even short term. Pt is a DNR/DNI. Patient with increased delirium today and not reliable for this type of conversation. (3) Delirium: Pt with worsening delirium. His WBC is 10.36, and he is not hypercapnic. Most recent ABG: pH 7.37, CO2 33, HCO3 24. His actual PaO2 was 106. Pt has Ativan 0.5 mg IV Q 4 PRN ordered. Will keep PRN until discussion held with pt if possible, ultimately transitioning to MEDICAL CHIEF TECHNICIAN would benefit patient at this time and would be supported. Pt just received a one time dose of Haldol 2.5 mg IV for behavioral disturbance. Ordered scheduled Zyprexa ODT 5mg BID History of Present Illness Reason for Consultation: Goals of care Requesting Physician: Dr. Menjivar Attending Physician: Jose Cash MD History of Present Illness This is a 70 year old male who presented to the [facility] with increased shortness of breath and fatigue that has been occuring over the past 10 days prior to admission. He has an extensive PMH that includes: Chromophobe renal cell carcinoma s/p nephrectomy, HTN, HLD, Barrest Esophagus, Large B-cell lymphoma, BPH s/p LUTS and a persistent smoker. He was diagnosed with COVID-19 PNA and was placed on Hi-flow O2. Palliative Medicine was consulted to discuss overall goals of care. Please see A/P for further details Thanks for involving Palliative Medicine with this unfortunate individual. Allergies Allergy/AdvReac Type Severity Reaction Status Date / Time No Known Allergies Allergy Verified 02/04/21 14:47 Home Medications Medication Instructions Recorded Confirmed Type multivitamin 1 tab PO DAILY 03/01/19 02/04/21 History albuterol sulfate 90 mcg/actuation 2 puff INH Q6H PRN #18 gm 06/24/20 02/04/21 Rx aerosol inhaler tiotropium 2.5 mcg-olodaterol 2.5 2 puff INHALATION DAILY #3 inhaler 06/24/20 02/04/21 Rx mcg/actuation mist for inhalation (Stiolto Respimat) tamsulosin 0.4 mg capsule 0.4 mg PO HS #90 cap 06/25/20 02/04/21 Rx amlodipine 2.5 mg tablet 2.5 mg PO DAILY #90 tab 07/06/20 02/04/21 Rx atorvastatin 20 mg tablet 20 mg PO DAILY #90 tab 09/23/20 02/04/21 Rx omeprazole 40 mg capsule,delayed 40 mg PO DAILY #90 cap 09/23/20 02/04/21 Rx release aspirin 81 mg tablet,delayed 81 mg PO DAILY 02/04/21 02/04/21 History release (Aspirin Low Dose) Patient History Medical History (Updated 02/08/21 @ 12:36 by MIRLANDE Garcia) Anemia Anemia Aortic atherosclerosis Stafford esophagus Benign localized prostatic hyperplasia with lower urinary tract symptoms (LUTS) Chromophobe renal cell carcinoma Chronic obstructive pulmonary disease, unspecified Coronary artery calcification Current smoker Delirium Elevated PSA Gastroesophageal reflux disease History of adenocarcinoma of lung Hyperglycemia Hyperlipidemia Hypertension PAD (peripheral artery disease) Palliative care encounter Pulmonary emphysema Recurrent inguinal hernia of right side without obstruction or gangrene Renal mass Surgical History History of arthroscopy 2017 left lower lobectomy and mediastinal lymph node dissection History of kidney surgery History of lobectomy of lung S/P hernia repair S/P tonsillectomy and adenoidectomy S/P tooth extraction Status post insertion of iliac artery stent Family History Mother , age 76 Myocardial infarction Alzheimer disease Stroke syndrome Grandmother Diabetes Brother , age 43 Acute meningococcemia Bacterial meningitis Sister , age 27 MVA (motor vehicle accident) Father , age 62 Cardiac disorder Myocardial infarction Sister No problems noted. Sister No problems noted. Sister No problems noted. Sister No problems noted. Son No problems noted. Son No problems noted. Daughter No problems noted. Denies family history of Ovarian cancer Prostate cancer Breast cancer Lung cancer Colorectal cancer Social History Smoking Status: Current every day smoker Tobacco Type: Cigarettes Age Started Using Tobacco: 5; packs per day: 0.25; Years Smoked: 64; Cigarettes Per Day: 20; Second Hand Exposure: Yes; Hx Alcohol Use: No Hx Substance Use: No Preferred Language: Kyrgyz Communication Ability: Effective Hearing Ability: Normal Civil Rights Attorney Required: No Beliefs That Will Affect Care: None marital status: Current Living Situation: Spouse current occupational status: employed current occupation: works 3 days How many Children do You have: 3 Feels Safe at Home: Yes Childhood Exposure to Second-Hand Smoke: Yes caffeine: Yes (10-12 cups per day tea one cup per day) during the past year weight has: remained stable Dental Care, Regularly: No Physical Activity Frequency: 1-2 Times per Week Seatbelt Use: always Sunscreen Use: No Assistive Devices: None Review of Systems Review of Systems: Unobtainable due to cognitive status and Unobtainable due to reduced consciousness Physical Exam Constitutional: + frail appearing and comfortable ENMT: Mouth: + dry oral mucous membranes Respiratory: normal respiratory effort and + cough Auscultation: + rhonchi Cardiovascular: Rate/Rhythm: regular rate and regular rhythm Heart Sounds: normal S1 and normal S2 Extremities: normal capillary refill; no pedal edema and no edema Gastrointestinal (Abdomen): Inspection/Auscultation: abdomen normal to inspection Percussion/Palpation: abdomen soft Skin: + pallor Psychiatric: Orientation: alert Insight: + poor insight Judgement: + poor judgement Results & Data ([facility]) Vital Signs (Past 12 Hours) Vital Signs Temp Pulse Pulse Resp BP Pulse Ox Pulse Ox 02/08/21 11:25 36.9 C 96 H 29 H 118/77 95 02/08/21 08:00 59 L 95 02/08/21 07:57 74 24 97 02/08/21 07:13 37.4 C 88 28 H 120/70 92 02/08/21 05:56 88 22 90 02/08/21 03:05 36.8 C 76 24 158/76 H 95 02/08/21 02:13 115 H 28 H 87 L PG Care Time/CCT Total # of Minutes Spent Total Time Spent with Patient: Total time spent is greater than 50% in coordination of care (as documented) at patient's floor/unit and/or counseling patient: 100 minutes with > 50% of that time spent assessing the patient, addressing symptom management needs and collaborating with IDT Coding Level of Care Code 10145 Initial Inpt Care Lvl 3 Diagnoses Palliative care encounter Z51.5 Hypoxia R09.02 Delirium R41.0 Time Spent (min) 100
[2021-02-08] MEDS: OLANZapine ZYDIS 5 MG ORALLY DIS. TAB PO SCH ×2 (17:01→20:41)
[2021-02-08] MEDS: TAMSULOSIN HCL 0.4 MG CAP PO SCH (20:41)
[2021-02-09 07:01] LABS: Creatinine Clr Calc Pharmacy 48.3 ml/min; Est GFR (African American) 72.3 ml/min; Est GFR (Non-African American) 62.4 ml/min
[2021-02-09] MEDS: BUDESONIDE 0.5 MG/2 ML VIAL (PULMICORT) NEB SCH (07:24)
--- NOTE | 2021-02-09 08:24 | Palliative Care Progress Note ---
Date of Service February 09, 2021 Assessment & Plan (1) Palliative care encounter: Plan: Patient has declined since yesterday. He appears dusky at times, has become febrile, continues to pull at oxygen and is unable to follow any meaningful commands. He does, occasionally, open his eyes to his name, but is unable to speak. I had a few conversations with the patients , Thalia, over the phone who indicated that her and her son, Pepe, were considering intubation to ensure they 'tried everything they could'. I suggested a zoom meeting for them to be able to see the patient and make a more informed decision regarding his goals as he is unable. Throughout the day, the patient was pushing away medications and has been consistently unable to swallow safely. He continued to have a 1:1 for safety. At 1800, I met with Andre KEANE, and the BULLET CHARGING MACHINE OPERATOR who was in the room with the patient. Multiple family members were on the ipad and we discussed his care. We discussed that intubation, at this stage of his disease state, along with taking into consideration his previous underlying chronic medical conditions proves that it would be an unlikely meaningful recovery. We discussed the complications associated with intubation i.e. pressors, sedation, restraints and complex overall care. We also discussed that if he were able to be involved in the decision making, what do they feel he would choose for himself. All were in agreement for a transition to comfort focused care. I had discussed with Soha Rojas with Infection Control and gained clearance for TWO visitors for any timeframe for a one time visit in the covid unit with appropriate PPE donned, including N95, surgical mask, shield, gown, booties. [facility] PCU sup aware and will meet family in ante room to assist with donning/doffing. Reza, the mass spectrometry manager in the ED will escort Thalia and her son Pepe to the ante room. Known covid risk exposure discussed. Full comfort orders placed. Morphine PRN ordered. Low threshold for Morphine drip. Palliative will follow to continue to assess for comfort and support to family. Life expectancy likely hours once HiFlow is removed. (2) Hypoxia: Plan: Pt was initially on BiPAP in the ER; however, patient pulled that off. Pt has been on Hi-Flow O2, currently 60L at 90%. Patient has indicated the he would not want mechanical ventilation, even short term. Pt is a DNR/DNI. Patient with increased delirium today and not able to participate in conversation. (3) Delirium: Admission and Anticipated Discharge Date Admission Date: February 04, 2021 Subjective Today, patient is extremely restless, with increased moaning and no ability to perform in a meaningful conversation. His O2 needs continue to be great at 90% FiO2 and 60L on Hi-Flow O2. He did have a period of time of desaturation and became dusky in appearance. Family meeting held at 1800. Transitioned to REPRODUCTION ARTIST. See A/P for further details. Review of Systems Review of Systems: Unobtainable due to reduced consciousness Physical Exam Constitutional: + acute distress and + frail appearing; + uncomfortable ENMT: Mouth: + dry oral mucous membranes Respiratory: + respiratory distress, + labored breathing, + uses accessory muscles and + cough Auscultation: + rhonchi Cardiovascular: Rate/Rhythm: regular rhythm and + tachycardic Heart Sounds: normal S1 and normal S2 Extremities: normal capillary refill; no pedal edema and no edema Gastrointestinal (Abdomen): Inspection/Auscultation: abdomen normal to inspection Percussion/Palpation: abdomen soft Skin: + pallor Psychiatric: Orientation: + not alert Insight: + poor insight Judgement: + poor judgement Results & Data ([facility]) Vital Signs (Past 12 Hours) Vital Signs Temp Pulse Pulse Resp BP Pulse Ox 02/09/21 07:41 37.1 C 115 H 21 128/77 90 02/09/21 07:24 102 H 20 95 02/09/21 05:55 95 H 24 94 02/09/21 03:34 36.7 C 90 19 125/66 94 02/09/21 03:22 97 H 25 H 93 02/08/21 23:05 36.6 C 62 17 117/71 94 02/08/21 23:00 99 H PG Care Time/CCT Total # of Minutes Spent Total Time Spent with Patient: Total time spent is greater than 50% in coordination of care (as documented) at patient's floor/unit and/or counseling patient: 65 minutes with > 50% of that time spent assessing the patient, discussing goals of care with numerous family members, addressing symptom management needs, and collaborating with IDT Coding Level of Care Code 72842 Subseq Hosp Care Lvl 3 Diagnoses Palliative care encounter Z51.5 Hypoxia R09.02 Delirium R41.0 Time Spent (min) 65
[2021-02-09] MEDS: UMECLIDINIUM/VILANTEROL 62.5/25MCG 7 PUFFS/INHALER INH SCH (08:51)
[2021-02-09] MEDS: dexAMETHasone 6 MG in SYRINGE 0 ML IV SCH (08:52)
[2021-02-09] MEDS: ENOXAPARIN INJ 40 MG/0.4 ML SYR SQ SCH (08:52)
[2021-02-09] MEDS: OLANZapine ZYDIS 5 MG ORALLY DIS. TAB PO SCH (08:58)
[2021-02-09] MEDS: MULTIVITAMIN TAB PO SCH (08:58)
[2021-02-09] MEDS: 4 mg Once Daily x14 days PO SCH (08:59)
[2021-02-09] MEDS: ASPIRIN 81 MG ECTAB PO SCH (08:59)
[2021-02-09] MEDS: PANTOprazole 40 MG TAB PO SCH (08:59)
[2021-02-09] MEDS: ATORVASTATIN 20 MG TAB PO SCH (08:59)
[2021-02-09] MEDS: FUROSEMIDE 40 MG/4 ML VIAL IV SCH (09:21)
[2021-02-09] MEDS ORDERED: ACETAMINOPHEN 1000 MG/100 ML IV IV PRN (16:48)
[2021-02-09] MEDS ORDERED: ONDANSETRON 4 MG OD TAB SL PRN (18:33)
[2021-02-09] MEDS ORDERED: ONDANSETRON INJ 2 MG/ML 2 ML VIAL IV PRN (18:33)
[2021-02-09] MEDS ORDERED: LORazepam 0.5 MG/1 ML VIAL IV PRN (18:33)
[2021-02-09] MEDS ORDERED: PROMETHAZINE HCL 12.5 MG in SODIUM CHLORIDE 0.9% 50 ML IV PRN (18:33)
[2021-02-09] MEDS ORDERED: ATROPINE SULFATE 1% OP SOLN 5 ML BTL SL PRN (18:33)
--- NOTE | 2021-02-09 18:40 | Hospitalist Progress Note ---
Date of Service February 09, 2021 Assessment & Plan (1) Need for comfort care: Plan: With a great help of case management, BRIGID barlow, family meeting was conducted with Av. At the end of the family meeting the family decided to pursue full comfort care measures discontinuing all aggressive or interventional therapies at this time. Not initially starting morphine drip at this point time but will continue to support his needs for comfort and may progress to morphine drip if needed (2) COVID: Plan: Unvaccinated. Unclear exact onset of symptoms, patient reports 2 weeks but 7 days reported by his . diagnosed on 01/25 covid pneumonia seen Patient has progressed severe respiratory failure with profound hypoxemia family has agreed to transition to comfort care in the evening of 02/09 all treatment and medication will be discontinued with exception of dexamethasone (3) Acute respiratory failure with hypoxia: Plan: Aim O2 sats > 90%. Currently on HFNC has bernabe in place, Lasix 20mg IV qAM, good response encouraged to lay on side or prone, not sure he will be compliant 02/07:refuses intubation, understands he may get worse, palliative care did make DNR/DNI family meeting confirms no aggressive intervention or reversal of DNR/DNI status is expected from respiratory failure (4) ARDS (adult respiratory distress syndrome): Plan: As above dexamethasone, supplemental oxygen for comfort (5) Hyponatremia: Plan: due to volume overload, poor solute intake Na is 131 on 02/06 (6) Pulmonary edema: Plan: As above for hyponatremia (7) Current smoker: Plan: Previous lung disease plays a large role and impact of Covid pneumonia in this patient (8) COPD with emphysema: Plan: Patient fighting and refusing inhalers at this time (9) BPH w urinary obs/LUTS: Plan: bernabe in place (10) Diffuse large B-cell lymphoma of intra-abdominal lymph nodes: Plan: Incidentally picked on renal cancer surveillance. Prior rituximab 11/2019. No current treatment. Asymptomatic form this per last oncology note. (11) PAD (peripheral artery disease): (12) Hyperlipidemia: Plan: Contiue atorvastatin 20mg PO daily (13) Chromophobe renal cell carcinoma: Plan: s/p nephrectomy. Currently on surveillance only. Plan: VTE Prophylaxis - Lovenox 40mg SQ BID Diet - give him a regular diet Disposition - family is considering progression to comfort measures Admission and Anticipated Discharge Date Admission Date: February 04, 2021 Subjective pt was extremely restless moaning with each inspiration not seeming comfortable oxygen saturations are maintained on maximum Vapotherm high flow oxygen therapy. Later in the day the family meeting did recommend the patient proceed to comfort care measures Review of Systems Review of Systems: Unobtainable due to cognitive status Physical Exam Physical Exam: The patient appeared in moderate to severe distress he is thin appears uncomfortable Vital signs as documented. Head exam is normocephalic atraumatic Neck is without JVD, thyromegaly, or carotid bruits. Lungs are coarse bilaterally with poor air movement Cardiac exam, tachycardic Abdominal exam reveals normal bowel sounds, soft non tender, no masses Extremities are nonedematous and both pedal pulses are present Neurologic exam is obtunded only moaning in discomfort Skin is without bruises or rashes Results & Data Results & Data ([facility]) Vital Signs (Past 12 Hours) Vital Signs Temp Pulse Pulse Resp BP Pulse Ox Pulse Ox 02/09/21 17:45 99.9 F H 02/09/21 15:53 100.6 F H 114 H 26 H 127/86 85 L 02/09/21 15:48 112 H 26 H 88 L 02/09/21 11:43 98.1 F 118 H 24 153/82 H 87 L 02/09/21 11:27 112 H 30 H 86 L 02/09/21 08:00 108 H 88 L 02/09/21 07:41 98.8 F 115 H 21 128/77 90 02/09/21 07:24 102 H 20 95 Pulse Ox 02/09/21 17:45 02/09/21 15:53 02/09/21 15:48 02/09/21 11:43 02/09/21 11:27 02/09/21 08:00 95 02/09/21 07:41 02/09/21 07:24 PG Care Time/CCT Total # of Minutes Spent Total Time Spent with Patient: Total time spent is greater than 50% in coordination of care (as documented) at patient's floor/unit and/or counseling patient: Coding Level of Care Code 12023 Subseq Hosp Care Lvl 2 Diagnoses COVID U07.1 Acute respiratory failure with hypoxia J96.01 ARDS (adult respiratory distress syndrome) J80 Hyponatremia E87.1 Pulmonary edema J81.1 Current smoker F17.200 COPD with emphysema J43.9 BPH w urinary obs/LUTS N40.1; N13.8 Diffuse large B-cell lymphoma of intra-abdominal lymph nodes C83.33 PAD (peripheral artery disease) I73.9 Hyperlipidemia E78.5 Chromophobe renal cell carcinoma C64.9 Need for comfort care
[2021-02-09] MEDS ORDERED: GLYCOPYRROLATE 0.2 MG/ML VIAL IV PRN (18:48)
[2021-02-09] MEDS ORDERED: SCOPOLAMINE 1 MG TDSY TD SCH (19:00)
[2021-02-09 19:06] VITALS: BP 146/79; PULSE 101; TEMP 98.8; O2SAT 91
[2021-02-09] MEDS: MoRPHine SULFATE 2 MG/ML CARP IV PRN ×2 (20:16→21:44)
[2021-02-09] MEDS: LORazepam 0.5 MG/1 ML VIAL IV PRN (20:16)
[2021-02-09] MEDS ORDERED: LORazepam 1 MG/2 ML VIAL IV PRN (22:04)
[2021-02-09] MEDS: MoRPHine SULFATE 4 MG/ML 1 ML CARP\\VIAL IV PRN (22:40)
[2021-02-09] MEDS: LORazepam 1 MG/2 ML VIAL IV PRN (22:42)
[2021-02-10] MEDS ORDERED: CHECK SCOPOLAMINE PATCH PLACEMENT SCH
[2021-02-10] MEDS: MoRPHine SULFATE 4 MG/ML 1 ML CARP\\VIAL IV PRN ×2 (00:05→02:48)
[2021-02-10] MEDS: LORazepam 1 MG/2 ML VIAL IV PRN (02:49)
--- NOTE | 2021-02-10 07:17 | Discharge Summary ---
Date of Service February 10, 2021 Admission HPI Per Admitting Provider Desean Alonso is a 70 year old male who presents to the ER with shortness of breath. His has known COVID-19 pneumonia and the patient assumes he has had it for the last 2 weeks. Main symptom of fatigue and shortness of breath. Difficulty taking full history however due to need for BiPAP and patient in acute respiratory distress. He denies any diarrhea, loss of taste or smell, chest pain, abdominal pain, nasal congestion. He is unvaccinated. He is adamant he does not wish to be intubated. Updated his over the phone. Initially told ER physician she wanted everything possibly done for her but after I told her I discussed intubation and CPR with him and he was quite adamant he did not want this she is in agreement. He has been reluctant to even come to the hospital for the last 2 days. In the ER he is currently maintaining O2 sats > 94% on BiPAP FiO2 60%. SARS COV- 2 PCR positive. He was referred to medicine for admission and ongoing management of COVID-19 pneumonia. Principal Diagnosis acute on chronic respiratory failure with hypoxia covid infection pneumonia Discharge Exam Pt at 0705, on comfort care, pronounced by nurses Discharge Data Allergies Allergy/AdvReac Type Severity Reaction Status Date / Time No Known Allergies Allergy Verified 02/04/21 14:47 Consultations 02/04/21 13:44 ED Decision to Admit Stat 02/04/21 16:04 Consult Palliative Care Routine 02/04/21 19:14 Consult Pulmonology Routine 02/09/21 18:34 Consult Palliative Care Routine Ordered Studies 02/04/21 11:25 CT angio chest PE protocol Stat 02/04/21 11:26 CT head/brain wo con Stat Hospital Course (1) Need for comfort care: With a great help of case management, BRIGID barlow, family meeting was conducted with Zoom. At the end of the family meeting the family decided to pursue full comfort care measures PT while on comfort care at 0705 on 02/10/21 (2) COVID: Unvaccinated. Unclear exact onset of symptoms, patient reports 2 weeks but 7 days reported by his . diagnosed on 01/25 covid pneumonia seen Patient has progressed severe respiratory failure with profound hypoxemia family has agreed to transition to comfort care in the evening of 02/09 all treatment and medication were discontinued (3) Acute respiratory failure with hypoxia: 02/07:refuses intubation, understands he may get worse, palliative care did make DNR/DNI family meeting confirms no aggressive intervention or reversal of DNR/DNI status is expected from respiratory failure (4) ARDS (adult respiratory distress syndrome): As above (5) Hyponatremia: due to volume overload, poor solute intake Na is 131 on 02/06 (6) Pulmonary edema: As above for hyponatremia (7) Current smoker: Previous lung disease plays a large role and impact of Covid pneumonia in this patient (8) COPD with emphysema: Patient fighting and refusing inhalers at this time (9) BPH w urinary obs/LUTS: brenabe in place (10) Diffuse large B-cell lymphoma of intra-abdominal lymph nodes: Incidentally picked on renal cancer surveillance. Prior rituximab 11/2019. No current treatment. Asymptomatic form this per last oncology note. (11) PAD (peripheral artery disease): (12) Hyperlipidemia: Contiue atorvastatin 20mg PO daily (13) Chromophobe renal cell carcinoma: s/p nephrectomy. Currently on surveillance only. Total Time Total Time Spent Total Time Spent (In Minutes): less than 30 minutes were required to complete this discharge Discharge Plan Discharge Items Patient Disposition: Discharge Diagnosis: acute on chronic respiratory failure with hypoxia covid infection pneumonia Other Date/Time: 02/10/21 07:05 Coding Level of Care Code D/C DAY MANAGEMENT <30 MINS Diagnoses Need for comfort care COVID U07.1 Acute respiratory failure with hypoxia J96.01 ARDS (adult respiratory distress syndrome) J80 Hyponatremia E87.1 Pulmonary edema J81.1 Current smoker F17.200 COPD with emphysema J43.9 BPH w urinary obs/LUTS N40.1; N13.8 Diffuse large B-cell lymphoma of intra-abdominal lymph nodes C83.33 PAD (peripheral artery disease) I73.9 Hyperlipidemia E78.5 Chromophobe renal cell carcinoma C64.9
== END 2021-02-10 10:01 | disposition expired | DRG 177 ==
LOC: ED 11:08 → 2S 15:15 → SUATTDRO 15:15 → 2S 17:00